=== PATIENT | male | born 1985 | race African-American/Black ===

== ENCOUNTER 2019-09-23 23:22 | Emergency (ER) | payer OTHER ==
[~2019-09-23] VITALS: Ht 172.7 cm; Wt 117.9 kg
[2019-09-23 23:30] VITALS: BP 136/93
[2019-09-23] MEDS: Albuterol/Ipratropium 3ml neb HHN SCH (23:45)
[2019-09-24] MEDS ORDERED: Albuterol 90mcg Inhaler 8gm INH STA (00:10)
--- NOTE | 2019-09-24 00:10 | Emergency Room Report ---
History of Present Illness General Chief Complaint: Asthma Source: Patient Present Illness HPI Patient is a 34-year-old male past medical history of obesity and asthma who presents to the ER complaining of asthma attack. Patient states that it has gotten worse over the past few days. Patient does have a nebulizer machine at home that he has been using but still complains of chest tightness and shortness of breath. He states that his asthma is worse likely due to the windy and yamil conditions and smoke. Patient denies any fever or chills. He denies any recent travel. He denies any family history of early cardiovascular disease. He denies any lower extremity pain or edema. He denies any family history of sudden . He denies any drug use. He denies any cough. 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 Patient History Reviewed Nursing Documentation: PMH: Agreed; PSxH: Agreed Review of Systems All Other Systems: negative except mentioned in HPI Physical Exam Vital Signs Date Time Temp Pulse Resp B/P (MAP) Pulse Ox O2 Delivery O2 Flow Rate FiO2 09/23/19 23:24 98.6 105 20 136/93 (107) 96 Room Air Sp02 EP Interpretation: reviewed, normal General Appearance: no apparent distress, alert, GCS 15, non-toxic Head: normocephalic, atraumatic Eyes: bilateral eye normal inspection, bilateral eye PERRL ENT: hearing grossly normal, normal pharynx, no angioedema, normal voice Neck: full range of motion, supple/symm/no masses Respiratory: chest non-tender, no respiratory distress, no retraction, no accessory muscle use, speaking full sentences, wheezing Cardiovascular #1: no edema, tachycardia Cardiovascular #2: 2+ carotid (R), 2+ carotid (L) Gastrointestinal: normal bowel sounds, non tender, soft, non-distended, no guarding, no rebound Rectal: deferred Genitourinary: normal inspection, no CVA tenderness Musculoskeletal: no calf tenderness, gait/station normal Neurologic: alert, motor strength/tone normal, oriented x3, sensory intact, responsive, speech normal Psychiatric: no suicidal/homicidal ideation Skin: no rash Lymphatic: no adenopathy Medical Decision Making Diagnostic Impression: Primary Impression: Asthma exacerbation Additional Impression: COVID-19 ER Course Patient had mild tachycardia on arrival he stated that he just had his nebulizer. Tachycardia resolved and then patient again had breathing treatment here in the emergency room patient was tachycardic again at 108. Patient notified about his COVID-19 positive results. Patient in no acute respiratory distress. His oxygen saturation is 96%. He is able to speak in complete sentences while ambulating. Patient's chest x-ray demonstrates no acute cardiopulmonary pathology. Patient is complaining of some chest discomfort he describes it as a tightness. I explained to the patient that he could be admitted for his symptoms. Patient is adamantly declining admission at this time. He states that he will monitor his symptoms and return for any new or worsening symptoms. Told to specifically monitor for shortness of breath, chest pain, inability to tolerate p.o. or symptoms of dehydration. I explained that most people with such infections can get better with appropriate home care and without the need to see a provider. People who are elderly, or have a weak immune system or other medical problems are at a higher risk of more serious illness or complications. I recommend that they carefully monitor their symptoms closely and seek medical care early if their symptoms get worse. I recommend rest, drinking plenty of fluids, taking [id number] cold and flu medications to reduce fever and pain. I noted that these medicines do not cure the illness and therefore do not stop them from spreading the germs. I recommend self quarantine for 14 days. Chest X-Ray Diagnostic Results Chest X-Ray Diagnostic Results : Chest X-Ray Ordered: Yes # of Views/Limited/Complete: 1 View Indication: Other - asthma EP Interpretation: Yes Interpretation: no consolidation, no effusion, no pneumothorax, no acute cardiopulmonary disease Impression: No acute disease Electronically Signed by: Lita Tolliver MD Last Vital Signs Date Time Temp Pulse Resp B/P (MAP) Pulse Ox O2 Delivery O2 Flow Rate FiO2 09/23/19 23:24 98.6 105 20 136/93 (107) 96 Room Air Disposition: HOME, SELF-CARE Condition: Stable Scripts Cetirizine Hcl* (ZYRTEC*) 10 Mg Tablet 10 MG ORAL DAILY, #30 TAB 0 Refills Prov: Lita Tolliver M.D. 09/24/19 Albuterol Sulfate* (ALBUTEROL SULFATE HHN*) 2.5 Mg/3 Ml Vial.neb 2.5 MG HHN Q4H PRN for Shortness of Breath, #25 VIAL Prov: Lita Tolliver M.D. 09/24/19 Prednisone* (PREDNISONE*) 20 Mg Tablet 60 MG ORAL DAILY, #5 TAB Prov: Lita Tolliver M.D. 09/24/19 Referrals: [facility],REFERRING (PCP) Additional Instructions: The patient was provided with discharge instructions, notified to follow-up with a primary care doctor and or specialist in the next 24-48 hours, and to return to the ED if they have worsening of their symptoms. Please note that this report is being documented using OpenTable technology. This can lead to erroneous entry secondary to incorrect interpretation by the dictating instrument. Lita Tolliver M.D. Sep 24, 2019 00:10
[2019-09-24] MEDS: Albuterol/Ipratropium 3ml neb HHN SCH ×4 (00:15→00:45)
[2019-09-24] MEDS ORDERED: ALBUTEROL2.5 MG/3 M HHN (00:35)
[2019-09-24] MEDS ORDERED: PREDNISONE20 MG ORAL (00:35)
[2019-09-24] MEDS ORDERED: ZYRTEC10 MG ORAL (00:35)
--- NOTE | 2019-09-24 01:29 | Diagnostic Imaging Report ---
EXAM: XR Chest, 1 View CLINICAL HISTORY: SOB TECHNIQUE: Frontal view of the chest. COMPARISON: No relevant prior studies available. FINDINGS: Limitations: Artifact related to body habitus limits detail. Lungs: No focal consolidation. Pleural space: No pleural effusion or pneumothorax. Heart: Cardiac silhouette likely upper normal in size allowing for frontal technique. Prominent epicardial fat pad likely present. Mediastinum: Unremarkable. Bones/joints: Unremarkable. IMPRESSION: No acute cardiopulmonary process.
[2019-09-24 01:40] VITALS: BP 136/93
[2019-10-14] MEDS ORDERED: PREDNISONE20 MG ORAL (22:35)
[2019-10-14] MEDS ORDERED: ATIVAN0.5 MG ORAL (22:35)
[2019-10-14] MEDS ORDERED: NASONEX17 GM NASAL (22:35)
== END 2019-09-24 01:40 | disposition home or self-care (01) ==
LOC: EMR 23:59
DX: U07.1 COVID-19 (principal); J45.901 Unspecified asthma with (acute) exacerbation
CPT/HCPCS: 71045; 94640; 99284; J7512

== ENCOUNTER → 2019-10-14 | Emergency (ER) | payer OTHER ==
[~2019-10-14] VITALS: Ht 172.7 cm; Wt 113.4 kg
[~2019-10-14] MED LIST: ALBUTEROL2.5 MG/3 M HHN; ATIVAN0.5 MG ORAL; NASONEX17 GM NASAL; PREDNISONE20 MG ORAL; Solu-MEDROL 125mg Inj IVP ONE; ZYRTEC10 MG ORAL
--- NOTE | 2019-10-14 19:30 | NUR ---
ED Nurse Note: PT AMBULATED TO ED FROM HOME C/O CHEST TIGHTNESS R/T ASTHMA, INHALER INEFFECTIVE. 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 ERMD AT BEDSIDE
--- NOTE | 2019-10-14 19:49 | Emergency Room Report ---
History of Present Illness General Chief Complaint: Dyspnea/Respdistress Source: Patient, Medical Record Present Illness HPI Patient presents with intermittent dyspnea and tachycardia. He had a positive COVID-19 test September 22. He is recently returned to work. 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 He notices his heart rate is up to the 130s. He does have a pulse oximetry and his oximetry is usually pretty good. He has a nebulizer and inhalers. He has had a lot of nasal congestion and using nasal sprays which makes his heart rate go up faster at this time. He denies chest pain per se. He denies any edema or calf pain. He states that during the shortness of breath he feels extremely anxious. He is concerned whether he has continued sequela of COVID-19 disease. He is requesting that a COVID-19 test be performed. He recently stopped taking oral prednisone. He had improvement with this. No fevers, chills, sore throat, chest pain, nausea, vomiting, diarrhea, dysuria , abdominal pain, joint pain, rashes, visual changes, dizziness, headache. He states that when younger he was told that he had an increased heart rate. 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 Nursing Documentation: PMH: Agreed; PSxH: Agreed Nursing Documentation-PMH Past Medical History: No History, Except For Hx Asthma: Yes Review of Systems All Other Systems: negative except mentioned in HPI Physical Exam Vital Signs Date Time Temp Pulse Resp B/P (MAP) Pulse Ox O2 Delivery O2 Flow Rate FiO2 10/14/19 19:13 132 24 152/97 (115) 96 Room Air Sp02 EP Interpretation: reviewed, normal - Pulse oximetry in the room is 99% General Appearance: well appearing, no apparent distress, GCS 15, non-toxic Head: normocephalic Eyes: bilateral eye normal inspection, bilateral eye PERRL, bilateral eye EOMI ENT: normal pharynx, moist mucus membranes Neck: full range of motion, supple Respiratory: chest non-tender, lungs clear, normal breath sounds Cardiovascular #1: no edema, tachycardia Cardiovascular #2: 2+ radial (R) Gastrointestinal: normal inspection, normal bowel sounds, non tender, no mass, non-distended Genitourinary: no CVA tenderness Musculoskeletal: back normal, normal range of motion, no calf tenderness, gait/ station normal Neurologic: alert, oriented x3, grossly normal, normal inspection Psychiatric: anxious Skin: no rash, warm/dry Medical Decision Making Diagnostic Impression: Primary Impression: Dyspnea Qualified Codes: R06.00 - Dyspnea, unspecified Additional Impressions: Hypokalemia History of 2019 novel coronavirus disease (COVID-19) History of asthma Anxiety Sinusitis Qualified Codes: J32.9 - Chronic sinusitis, unspecified ER Course Patient presents with intermittent dyspnea and rapid heart rate with a history of asthma and positive COVID-19 on the September 22. Differential includes myocarditis, acute myocardial infarction, pericarditis, asthma exacerbation, reaction to nasal sprays, pulmonary embolus amongst others. Evaluation with EKG , chest x-ray labs. Treatment with IV hydration and Solu-Medrol. The patient does not have wheezing at this time and breathing treatments are not indicated. Advised staff to don protective equipment in dealing with this patient as he could still be infected at this time. EKG was sinus tachycardia no injury. Chest x-ray clear without infiltrates. White count normal with normal lymphocytes. CMP remarkable for minimally low potassium. C-reactive protein minimally elevated. Ferritin minimally elevated. Troponin normal. Potassium administered. Patient improved with treatment. Long discussion with patient regarding findings. Tachycardia is resolved. There is no evidence of significant inflammatory COVID-19 disease at this time. Discussed that the patient may have anxiety and may be contributing to his dyspnea. No medical emergency at this time. Discussed with patient need to follow-up with his own private physician. In addition I recommended that the patient seek outpatient COVID-19 testing if he is still concerned. Patient stable for outpatient observation and treatment. Laboratory Tests Test 10/14/19 19:50 White Blood Count 9.1 K/UL (4.8-10.8) Red Blood Count 4.91 M/UL (4.70-6.10) Hemoglobin 14.3 G/DL (14.2-18.0) Hematocrit 42.4 % (42.0-52.0) Mean Corpuscular Volume 86 FL (80-99) Mean Corpuscular Hemoglobin 29.0 PG (27.0-31.0) Mean Corpuscular Hemoglobin Concent 33.6 G/DL (32.0-36.0) Red Cell Distribution Width 12.5 % (11.6-14.8) Platelet Count 337 K/UL (150-450) Mean Platelet Volume 7.4 FL (6.5-10.1) Neutrophils (%) (Auto) 64.2 % (45.0-75.0) Lymphocytes (%) (Auto) 26.4 % (20.0-45.0) Monocytes (%) (Auto) 6.8 % (1.0-10.0) Eosinophils (%) (Auto) 1.1 % (0.0-3.0) Basophils (%) (Auto) 1.5 % (0.0-2.0) Prothrombin Time 10.9 SEC (9.30-11.50) Prothrombin Time INR 1.0 (0.9-1.1) Activated Partial Thromboplast Time 28 SEC (23-33) Urine Color Pale yellow Urine Appearance Clear Urine pH 8 (4.5-8.0) Urine Specific [place] 1.010 (1.005-1.035) Urine Protein Negative (NEGATIVE) Urine Glucose (UA) Negative (NEGATIVE) Urine Ketones Negative (NEGATIVE) Urine Blood Negative (NEGATIVE) Urine Nitrite Negative (NEGATIVE) Urine Bilirubin Negative (NEGATIVE) Urine Urobilinogen Normal MG/DL (0.0-1.0) Urine Leukocyte Esterase Negative (NEGATIVE) Sodium Level 141 MMOL/L (136-145) Potassium Level 3.3 MMOL/L (3.5-5.1) L Chloride Level 102 MMOL/L (98-107) Carbon Dioxide Level 30 MMOL/L (21-32) Anion Gap 9 mmol/L (5-15) Blood Urea Nitrogen 9 mg/dL (7-18) Creatinine 1.0 MG/DL (0.55-1.30) Estimated Glomerular Filtration Rate > 60 mL/min (>60) Glucose Level 116 MG/DL (74-106) H Calcium Level 9.1 MG/DL (8.5-10.1) Magnesium Level 2.0 MG/DL (1.8-2.4) Ferritin 392 NG/ML (8-388) H Total Bilirubin 0.3 MG/DL (0.2-1.0) Aspartate Amino Transferase (AST) 24 U/L (15-37) Alanine Aminotransferase (ALT) 67 U/L (12-78) Alkaline Phosphatase 71 U/L (46-116) Lactate Dehydrogenase 191 U/L (81-234) Total Creatine Kinase 102 U/L (26-308) Troponin I 0.000 ng/mL (0.000-0.056) C-Reactive Protein, Quantitative 1.3 mg/dL (0.00-0.90) H Pro-B-Type Natriuretic Peptide 6 pg/mL (0-125) Total Protein 8.2 G/DL (6.4-8.2) Albumin 4.5 G/DL (3.4-5.0) Globulin 3.7 g/dL Albumin/Globulin Ratio 1.2 (1.0-2.7) Urine Opiates Screen Negative (NEGATIVE) Urine Barbiturates Screen Negative (NEGATIVE) Phencyclidine (PCP) Screen Negative (NEGATIVE) Urine Amphetamines Screen Negative (NEGATIVE) Urine Benzodiazepines Screen Negative (NEGATIVE) Urine Cocaine Screen Negative (NEGATIVE) Urine Marijuana (THC) Screen Negative (NEGATIVE) EKG Diagnostic Results Rate: tachycardiac Rhythm: NSR ST Segments: no acute changes Rhythm Strip Diag. Results EP Interpretation: yes Rhythm: no PVC's, other - ST Chest X-Ray Diagnostic Results Chest X-Ray Diagnostic Results : Chest X-Ray Ordered: Yes # of Views/Limited/Complete: 1 View Indication: Shortness of Breath EP Interpretation: Yes Interpretation: no consolidation, no effusion, no pneumothorax Impression: No acute disease Electronically Signed by: Electronically signed by Dat Navarrete MD Last Vital Signs Date Time Temp Pulse Resp B/P (MAP) Pulse Ox O2 Delivery O2 Flow Rate FiO2 10/14/19 19:13 132 24 152/97 (115) 96 Room Air Status: improved Disposition: HOME, SELF-CARE Condition: Improved Scripts Mometasone Furoate (NASONEX) 17 Gm [place].pump 2 SPRAYS NASAL DAILY, #20 GM 0 Refills Prov: Dat Navarrete MD 10/14/19 Lorazepam* (ATIVAN*) 0.5 Mg Tablet 0.5 MG ORAL THREE TIMES A DAY PRN for For Anxiety, #4 TAB Prov: Dat Navarrete MD 10/14/19 Prednisone* (PREDNISONE*) 20 Mg Tablet 40 MG ORAL DAILY, #10 TAB Prov: Dat Navarrete MD 10/14/19 Dat Navarrete MD Oct 14, 2019 19:49
[2019-10-14 20:00] VITALS: BP 152/97
[2019-10-14 20:25] LABS: BASOPHILS % (AUTO) 1.5 % (0.0-2.0); EOSINOPHILS % (AUTO) 1.1 % (0.0-3.0); HEMATOCRIT 42.4 % (42.0-52.0); HEMOGLOBIN 14.3 G/DL (14.2-18.0); LYMPHOCYTES % (AUTO) 26.4 % (20.0-45.0); MEAN CORPUSCULAR VOLUME 86 FL (80-99); MONOCYTES % (AUTO) 6.8 % (1.0-10.0); NEUTROPHILS % (AUTO) 64.2 % (45.0-75.0); PLATELET COUNT 337 K/UL (150-450); RED BLOOD COUNT 4.91 M/UL (4.70-6.10); RED CELL DISTRIBUTION WIDTH 12.5 % (11.6-14.8); WHITE BLOOD COUNT 9.1 K/UL (4.8-10.8)
[2019-10-14 20:34] LABS: ANION GAP 9 mmol/L (5-15); BLOOD UREA NITROGEN 9 mg/dL (7-18); CALCIUM 9.1 MG/DL (8.5-10.1); CARBON DIOXIDE 30 MMOL/L (21-32); CHLORIDE 102 MMOL/L (98-107); POTASSIUM 3.3 MMOL/L (3.5-5.1); SODIUM 141 MMOL/L (136-145)
[2019-10-14 20:50] LABS: ALANINE AMINOTRANSFERASE 67 U/L (12-78); ALBUMIN 4.5 G/DL (3.4-5.0); ALBUMIN/GLOBULIN RATIO 1.2 (1.0-2.7); ALKALINE PHOSPHATASE 71 U/L (46-116); ASPARTATE AMINO TRANSFERASE 24 U/L (15-37); BILIRUBIN,TOTAL 0.3 MG/DL (0.2-1.0); CREATINE KINASE 102 U/L (26-308); FERRITIN 392 NG/ML (8-388); LACTATE DEHYDROGENASE 191 U/L (81-234)
[2019-10-14 21:10] LABS: APPEARANCE,URINE CLEAR; BILIRUBIN, URINE NEGATIVE (NEGATIVE); COLOR,URINE PALE YELLOW; GLUCOSE, URINE (UA) NEGATIVE (NEGATIVE); KETONES,URINE NEGATIVE (NEGATIVE); LEUKOCYTE ESTERASE ,URINE NEGATIVE (NEGATIVE); NITRITE,URINE NEGATIVE (NEGATIVE); PH,URINE 8 (4.5-8.0); PROTEIN,URINE NEGATIVE (NEGATIVE); UROBILINOGEN,URINE NORMAL MG/DL (0.0-1.0)
[2019-10-14 22:00] VITALS: BP 138/82
[2019-10-14 22:40] VITALS: BP 138/82
--- NOTE | 2019-10-14 22:40 | NUR ---
ER DISCHARGE NOTE: Patient is cleared to be discharged per ERMD, pt is aox4, on room air, with stable vital signs. pt was given dc and prescription instructions, pt was able to verbalize understanding, pt id band and iv site removed without complications. pt is able to ambulate with steady gait. pt took all belongings.
--- NOTE | 2019-10-15 12:39 | Diagnostic Imaging Report ---
Indication: Dyspnea Technique: One view of the chest Comparison: 09/24/2019 Findings: Lungs and pleural spaces are clear. Heart size is upper limits normal. Impression: No acute process
== END | disposition home or self-care (01) ==
LOC: EMR 19:35
DX: R06.00 Dyspnea, unspecified (principal); E87.6 Hypokalemia; F41.9 Anxiety disorder, unspecified; J32.9 Chronic sinusitis, unspecified; J45.909 Unspecified asthma, uncomplicated; R00.0 Tachycardia, unspecified; Z86.19 Personal history of other infectious and parasitic diseases
CPT/HCPCS: 36415; 71045; 80053; 80307; 81003; 82550; 82728; 83615; 83735; 83880; 84484; 85025; 85610; 85730; 86140; 93005; 96361; 96374; 99284; J2930; J7030; J8499

== ENCOUNTER 2020-01-29 22:42 | Emergency (ER) | payer OTHER ==
[~2020-01-29] VITALS: Ht 172.7 cm; Wt 117.9 kg
[~2020-01-29 22:42] MED LIST changes: -Solu-MEDROL 125mg Inj IVP ONE
--- NOTE | 2020-01-29 23:00 | NUR ---
ED Nurse Note: Pt ambulated to Ed from home c/o generalized back pain that radiates to his neck, for several weeks, worse today, denies injury. PCP reffered to ER. Pt is A&OXRachel, VSS. PELAYO at bedside
--- NOTE | 2020-01-29 23:22 | NUR ---
ED Nurse Note: pt to xray
--- NOTE | 2020-01-29 23:22 | Emergency Room Report ---
History of Present Illness General Chief Complaint: Back Pain-No Injury Source: Patient Present Illness HPI This a 34-year-old male with history of asthma. He presents with complaint of neck and back pain. He said his back pain is localized to the mid thoracic area. Been ongoing for a couple weeks. He felt tightness in that area. He woke up 1 day and felt stiffness in that area. No heavy lifting. Worse with movement. Better with rest. Lasts week he has some headache and dizziness. Also with tenderness to the left neck area. His doctor placed him on Naprosyn and Augmentin. He finished Augmentin but he still noticed a white spot at the base of his mouth on the left side. Is neck also felt stiff. Pain is 7 out of 10. Nothing made it better. Nothing made it worse. No incontinence of bowel or urine. No trauma. 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 COVID-19 Screening: Negative COVID-19 COVID-19 Testing Source: [facility] Patient History Past Medical History: see triage record, old chart reviewed, asthma Past Surgical History: none Pertinent Family History: none Social History: Denies: smoking Immunizations: other Reviewed Nursing Documentation: PMH: Agreed; PSxH: Agreed Nursing Documentation-PMH Past Medical History: No History, Except For Hx Asthma: Yes Review of Systems Eye: Denies: eye pain, blurred vision ENT: Denies: ear pain, nose congestion, throat swelling Respiratory: Denies: cough, shortness of breath Cardiovascular: Denies: chest pain, palpitations Gastrointestinal: Denies: abdominal pain, diarrhea, nausea, vomiting Musculoskeletal: Reports: back pain; Denies: joint pain Skin: Denies: rash Neurological: Denies: headache, numbness Endocrine: Denies: increased thirst, increased urine Hematologic/Lymphatic: Denies: easy bruising All Other Systems: negative except mentioned in HPI Physical Exam Vital Signs Date Time Temp Pulse Resp B/P (MAP) Pulse Ox O2 Delivery O2 Flow Rate FiO2 01/29/20 22:43 97.7 115 16 145/90 (108) 96 Room Air Vitals with blood pressure Sp02 EP Interpretation: reviewed, normal General Appearance: well appearing, no apparent distress, alert, obese Head: normocephalic, atraumatic Eyes: bilateral eye PERRL, bilateral eye EOMI ENT: hearing grossly normal, normal pharynx Neck: full range of motion, supple, no meningismus Respiratory: chest non-tender, lungs clear, normal breath sounds Cardiovascular #1: regular rate, rhythm - Heart rate 90, no murmur Gastrointestinal: normal bowel sounds, non tender, no mass, no organomegaly, no bruit, non-distended Musculoskeletal: back normal, normal range of motion, gait/station normal Neurologic: grossly normal Psychiatric: mood/affect normal Medical Decision Making Diagnostic Impression: Primary Impression: Neck muscle strain Qualified Codes: S16.1XXA - Strain of muscle, fascia and tendon at neck level, initial encounter Additional Impression: Strain of thoracic back region ER Course Patient with neck and back pain. No red flags to indicate cauda equina syndrome, spinal rubs or abscess or neoplastic process. Will discharge home. Other X-Ray Diagnostic Results Other X-Ray Diagnostic Results #1: X-Ray ordered: Cervical x-rays # of Views/Limited Vs Complete: 3 View Indication: Pain EP Interpretation: Yes Interpretation: no dislocation, no soft tissue swelling, no fractures Impression: No acute disease Electronically Signed by: Apolinar Talavera MD Other X-Ray Diagnostic Results #2: X-Ray ordered: Thoracic spine x-rays # of Views/Limited Vs Complete: 2 View Indication: Pain EP Interpretation: Yes Interpretation: no dislocation, no soft tissue swelling, no fractures Impression: No acute disease Electronically Signed by: Monisha Can Last Vital Signs Date Time Temp Pulse Resp B/P (MAP) Pulse Ox O2 Delivery O2 Flow Rate FiO2 01/29/20 22:43 97.7 115 16 145/90 (108) 96 Room Air Status: unchanged Disposition: HOME, SELF-CARE Condition: Stable Referrals: NOT CHOSEN [facility]/,REFERRING (PCP) Patient Instructions: Back Pain, Adult Additional Instructions: Follow-up with your doctor in 7 days. Continue with pain, may need an MRI. Return if worse. Apolinar Talavera MD Jan 29, 2020 23:22
--- NOTE | 2020-01-29 23:30 | NUR ---
ED Nurse Note: ERMD aware of pt's stated pain scale, pt to take own medications at home.
[2020-01-29] MEDS ORDERED: MOBIC15 MG ORAL (23:43)
[2020-01-29 23:46] VITALS: BP 145/90
--- NOTE | 2020-01-29 23:46 | NUR ---
ER DISCHARGE NOTE: Patient is cleared to be discharged per ERMD, pt is aox4, on room air, with stable vital signs. pt was given dc and prescription instructions, pt was able to verbalize understanding, pt id band removed. pt is able to ambulate with steady gait. pt took all belongings.
--- NOTE | 2020-01-29 23:51 | Diagnostic Imaging Report ---
EXAM: XR Cervical Spine, 2 or 3 Views CLINICAL HISTORY: PAIN TECHNIQUE: Frontal and lateral views of the cervical spine. COMPARISON: No relevant prior studies available. FINDINGS: Vertebrae: Spine straightening could represent patient positioning or muscle spasm. No definite fracture. Normal alignment. Disc spaces: No acute findings. No significant narrowing. Soft tissues: Unremarkable. IMPRESSION: 1. Spine straightening could represent patient positioning or muscle spasm. 2. Otherwise no acute abnormality definitively identified to account for patient presentation. 3. If there is continued concern, recommend CT.
--- NOTE | 2020-01-29 23:52 | Diagnostic Imaging Report ---
EXAM: XR Thoracic Spine, 3 Views CLINICAL HISTORY: PAIN TECHNIQUE: Frontal, lateral and swimmer's views of the thoracic spine. COMPARISON: No relevant prior studies available. FINDINGS: Vertebrae: Unremarkable. No acute fracture. Normal alignment. Disc spaces: No acute findings. No significant narrowing. Soft tissues: Unremarkable. Other findings: If there is further concern, recommend CT. IMPRESSION: 1. No acute abnormality definitively identified to account for patient presentation. 2. Unremarkable study. 3. If there is further concern, recommend CT.
== END 2020-01-29 23:46 | disposition home or self-care (01) ==
LOC: EMR 23:04
DX: S16.1XXA Strain of muscle, fascia and tendon at neck level, initial encounter (principal); S29.012A Strain of muscle and tendon of back wall of thorax, initial encounter; X58.XXXA Exposure to other specified factors, initial encounter; Y92.9 Unspecified place or not applicable; E66.9 Obesity, unspecified; Z68.39 Body mass index [BMI] 39.0-39.9, adult
CPT/HCPCS: 72040; 72070; 99284

== ENCOUNTER 2020-02-02 12:39 | Emergency (ER) | payer OTHER ==
[~2020-02-02] VITALS: Ht 172.7 cm; Wt 119.3 kg
[~2020-02-02 12:39] MED LIST changes: +MOBIC15 MG ORAL
[2020-02-02 12:49] VITALS: BP 135/83
--- NOTE | 2020-02-02 12:59 | Emergency Room Report ---
History of Present Illness General Chief Complaint: Abdominal Pain Source: Patient Present Illness HPI Disclaimer: Please note that this report is being documented using [employer] technology. This can lead to erroneous entry secondary to incorrect interpretation by the dictating instrument. HPI: 34-year-old male presents for evaluation of bloating. Patient reports feeling like his stomach is distended and early satiety for the past 2 days. Reports increased belching but decreased flatulence. He took laxatives yesterday as a home cleanout regimen. No significant improvement. He reports intermittent abdominal pain, currently none. Abdominal pain is described as diffuse though sometimes localized more on the right side. Denies history of prior abdominal surgery. Denies dysuria or hematuria. Aside from loose stools after taking laxatives yesterday denies diarrhea. No emesis. Denies fever, chills, chest pain, shortness of breath, cough, URI symptoms. 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 EOMI. Cardiovascular: RRR. S1 and S2 normal. No murmur appreciated Resp: Normal work of breathing. No cough, wheezing or crackles appreciated Abdomen: Obese abdomen. Nondistended, soft. No tenderness, negative Aparicio's, negative rebound tenderness, no guarding. Skin: Intact. No abrasions, laceration or rash over the exposed skin MSK: Normal tone and bulk. Moving all extremities. No obvious deformity. Neuro: Awake and alert. Mentating appropriately. Medical Decision Making Diagnostic Impression: Primary Impression: Abdominal pain ER Course 34-year-old male presenting for evaluation of abdominal distention. Differential includes is not limited to gastritis, gastroenteritis, pancreatitis, cholecystitis, hepatitis, bowel obstruction, ileus, nephrolithiasis, appendicitis, UTI, pyelonephritis among others. He is well- appearing and arrives with stable vital signs. His symptoms appear to have resolved now. Obtained labs which have returned within normal limits. Ultrasound of the right upper quadrant found no identifiable biliary disease. X-ray of the abdomen does not show obstruction. He is well-appearing tolerating p.o. at bedside. Will discharge with symptomatic medications and follow-up with his PMD. Discussed reasons to return to the ED. He understands and agrees with this treatment plan. Laboratory Tests Test 02/02/20 13:05 02/02/20 14:00 White Blood Count 7.5 K/UL (4.8-10.8) Red Blood Count 5.16 M/UL (4.70-6.10) Hemoglobin 15.1 G/DL (14.2-18.0) Hematocrit 45.0 % (42.0-52.0) Mean Corpuscular Volume 87 FL (80-99) Mean Corpuscular Hemoglobin 29.3 PG (27.0-31.0) Mean Corpuscular Hemoglobin Concent 33.6 G/DL (32.0-36.0) Red Cell Distribution Width 11.7 % (11.6-14.8) Platelet Count 296 K/UL (150-450) Mean Platelet Volume 8.5 FL (6.5-10.1) Neutrophils (%) (Auto) 66.0 % (45.0-75.0) Lymphocytes (%) (Auto) 24.7 % (20.0-45.0) Monocytes (%) (Auto) 6.8 % (1.0-10.0) Eosinophils (%) (Auto) 0.8 % (0.0-3.0) Basophils (%) (Auto) 1.8 % (0.0-2.0) Sodium Level 138 MMOL/L (136-145) Potassium Level 3.8 MMOL/L (3.5-5.1) Chloride Level 102 MMOL/L (98-107) Carbon Dioxide Level 28 MMOL/L (21-32) Anion Gap 8 mmol/L (5-15) Blood Urea Nitrogen 12 mg/dL (7-18) Creatinine 1.1 MG/DL (0.55-1.30) Estimated Glomerular Filtration Rate > 60 mL/min (>60) Glucose Level 102 MG/DL (74-106) Calcium Level 9.3 MG/DL (8.5-10.1) Total Bilirubin 0.5 MG/DL (0.2-1.0) Aspartate Amino Transferase (AST) 31 U/L (15-37) Alanine Aminotransferase (ALT) 72 U/L (12-78) Alkaline Phosphatase 67 U/L (46-116) Total Protein 7.6 G/DL (6.4-8.2) Albumin 4.5 G/DL (3.4-5.0) Globulin 3.1 g/dL Albumin/Globulin Ratio 1.5 (1.0-2.7) Lipase 48 U/L (73-393) L Urine Color Yellow Urine Appearance Clear Urine pH 5 (4.5-8.0) Urine Specific [place] 1.025 (1.005-1.035) Urine Protein Negative (NEGATIVE) Urine Glucose (UA) Negative (NEGATIVE) Urine Ketones 1+ (NEGATIVE) H Urine Blood Negative (NEGATIVE) Urine Nitrite Negative (NEGATIVE) Urine Bilirubin Negative (NEGATIVE) Urine Urobilinogen Normal MG/DL (0.0-1.0) Urine Leukocyte Esterase Negative (NEGATIVE) Last Vital Signs Date Time Temp Pulse Resp B/P (MAP) Pulse Ox O2 Delivery O2 Flow Rate FiO2 02/02/20 12:45 98.2 99 20 135/83 (100) 98 Room Air Disposition: HOME, SELF-CARE Condition: Stable Scripts Famotidine* (Pepcid 20mg tablet*) 20 Mg Tablet 20 MG ORAL DAILY for Gerd, #30 TAB 0 Refills Prov: Jorge Aquino MD 02/02/20 Ondansetron Odt* (ZOFRAN ODT*) 4 Mg Tab.rapdis 4 MG BC EVERY 6 HOURS PRN for Nausea & Vomiting, #20 TAB 0 Refills Prov: Jorge Aquino MD 02/02/20 Simethicone* (SIMETHICONE*) 80 Mg Tab.chew 80 MG ORAL Q8H PRN for GAS PAIN, #20 TAB 0 Refills Prov: Jorge Aquino MD 02/02/20 Jorge Aquino MD Feb 02, 2020 12:59
[2020-02-02 13:20] LABS: BASOPHILS % (AUTO) 1.8 % (0.0-2.0); EOSINOPHILS % (AUTO) 0.8 % (0.0-3.0); HEMOGLOBIN 15.1 G/DL (14.2-18.0); LYMPHOCYTES % (AUTO) 24.7 % (20.0-45.0); MEAN CORPUSCULAR VOLUME 87 FL (80-99); MONOCYTES % (AUTO) 6.8 % (1.0-10.0); PLATELET COUNT 296 K/UL (150-450); RED BLOOD COUNT 5.16 M/UL (4.70-6.10); RED CELL DISTRIBUTION WIDTH 11.7 % (11.6-14.8); WHITE BLOOD COUNT 7.5 K/UL (4.8-10.8)
[2020-02-02 13:25] LABS: ANION GAP 8 mmol/L (5-15); BLOOD UREA NITROGEN 12 mg/dL (7-18); CALCIUM 9.3 MG/DL (8.5-10.1); CARBON DIOXIDE 28 MMOL/L (21-32); CHLORIDE 102 MMOL/L (98-107); CREATININE 1.1 MG/DL (0.55-1.30); POTASSIUM 3.8 MMOL/L (3.5-5.1); SODIUM 138 MMOL/L (136-145)
[2020-02-02 13:30] LABS: ALANINE AMINOTRANSFERASE 72 U/L (12-78); ALBUMIN 4.5 G/DL (3.4-5.0); ALBUMIN/GLOBULIN RATIO 1.5 (1.0-2.7); ALKALINE PHOSPHATASE 67 U/L (46-116); ASPARTATE AMINO TRANSFERASE 31 U/L (15-37); BILIRUBIN,TOTAL 0.5 MG/DL (0.2-1.0)
[2020-02-02] MEDS ORDERED: FAMOTIDINE20 MG ORAL (14:09)
[2020-02-02] MEDS ORDERED: ONDANSETRON ODT4 MG BC (14:09)
[2020-02-02] MEDS ORDERED: SIMETHICONE80 MG ORAL (14:09)
--- NOTE | 2020-02-02 14:20 | Diagnostic Imaging Report ---
Indication: Reason For Exam: ABD DIST Technique: AP view of the abdomen. Comparison: None. Findings: Bowel gas pattern is nonobstructive. Visceral shadows are unremarkable. Lung bases are clear. IMPRESSION: No radiographic evidence of obstruction.
[2020-02-02 14:23] LABS: BILIRUBIN, URINE NEGATIVE (NEGATIVE); GLUCOSE, URINE (UA) NEGATIVE (NEGATIVE); KETONES,URINE 1+ (NEGATIVE); LEUKOCYTE ESTERASE ,URINE NEGATIVE (NEGATIVE); NITRITE,URINE NEGATIVE (NEGATIVE); PH,URINE 5 (4.5-8.0); PROTEIN,URINE NEGATIVE (NEGATIVE); UROBILINOGEN,URINE NORMAL MG/DL (0.0-1.0)
[2020-02-02 14:25] LABS: APPEARANCE,URINE CLEAR; COLOR,URINE YELLOW
[2020-02-02 14:48] VITALS: BP 128/74
--- NOTE | 2020-02-02 16:04 | Diagnostic Imaging Report ---
ABDOMINAL ULTRASOUND - COMPLETE INDICATION: Abdominal pain. TECHNIQUE: Multiplanar ultrasound examination of the abdomen with greyscale and doppler imaging. COMPARISON: None FINDINGS: Liver: The liver is normal in size and demonstrates diffusely increased echogenicity. No focal abnormalities are noted. Gallbladder: The gallbladder is normal. No stones are visualized. The wall is not thickened. Common bile duct: Normal in size. Pancreas: Incompletely imaged. Kidneys: The kidneys are normal in size and echogenicity. There is no hydronephrosis. Spleen: The spleen is normal in size and echogenicity. Aorta: Incompletely imaged. IMPRESSION: 1. No acute sonographic findings. 2. Hepatic steatosis.
== END 2020-02-02 14:48 | disposition home or self-care (01) ==
LOC: EMR 13:15
DX: R10.9 Unspecified abdominal pain (principal); R14.0 Abdominal distension (gaseous); R14.2 Eructation; K76.0 Fatty (change of) liver, not elsewhere classified
CPT/HCPCS: 36415; 74018; 76700; 80053; 81003; 83690; 85025; 99284

== ENCOUNTER 2020-02-13 07:52 | Emergency (ER) | payer SELFPAY ==
[~2020-02-13] VITALS: Ht 172.7 cm; Wt 119.3 kg
[~2020-02-13 07:52] MED LIST changes: +FAMOTIDINE20 MG ORAL; +ONDANSETRON ODT4 MG BC; +SIMETHICONE80 MG ORAL
[2020-02-13 08:09] VITALS: BP 134/86
[2020-02-13] MEDS ORDERED: Ketorolac 30mg Inj IV ONE (08:15)
--- NOTE | 2020-02-13 08:22 | Emergency Room Report ---
History of Present Illness General Chief Complaint: Pain Source: Patient Present Illness HPI The patient presents with 1 month of right flank and lower back pain. It was intermittent initially. He was seen here 2 weeks ago and had an ultrasound done. He was discharged without any pain medications. His own doctor prescribed omeprazole and meloxicam. The pain is now constant. For the last 2 nights the pain has been keeping him awake. It seems worse when he is laying flat. It is not radiating. He occasionally feels nausea without any vomiting. The pain is 9/10 at this time aching. He also feels muscle tightness. 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 Sometimes the pain is worsened when he is lifting heavy objects. The pain does not radiate to his groin. He denies dysuria or hematuria. He denies fevers or chills. Medical decision making from February 01 evaluation: 34-year-old male presenting for evaluation of abdominal distention. Differential includes is not limited to gastritis, gastroenteritis, pancreatitis, cholecystitis, hepatitis, bowel obstruction, ileus, nephrolithiasis, appendicitis, UTI, pyelonephritis among others. He is well-appearing and arrives with stable vital signs. His symptoms appear to have resolved now. Obtained labs which have returned within normal limits. Ultrasound of the right upper quadrant found no identifiable biliary disease. X-ray of the abdomen does not show obstruction. He is well-appearing tolerating p.o. at bedside. Will discharge with symptomatic medications and follow-up with his PMD. Discussed reasons to return to the ED. He understands and agrees with this treatment plan. The patient also is complaining about some dizziness. Denies lightheadedness. Feels that he is about to pass out. Not associated with nausea. He does not feel vertiginous. He has not had anything to drink this morning and feels somewhat dehydrated. His doctor felt that he had sinus problems. He was given a nasal inhaler which has not helped. The patient denies palpitations. No family history of renal stones. The patient has a history of asthma. He does have an inhaler. He has heard himself wheezing. He has no productive cough at this time. No sore throat, chest pain, diarrhea, shortness of breath, rashes, depression, anxiety, visual changes, headache. 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 Reviewed Nursing Documentation: PMH: Agreed; PSxH: Agreed Nursing Documentation-PMH Past Medical History: No History, Except For Hx Asthma: Yes Review of Systems All Other Systems: negative except mentioned in HPI Physical Exam Vital Signs Date Time Temp Pulse Resp B/P (MAP) Pulse Ox O2 Delivery O2 Flow Rate FiO2 02/13/20 07:56 98.1 103 20 134/86 (102) 96 Room Air Sp02 EP Interpretation: reviewed, normal General Appearance: well appearing, no apparent distress, GCS 15, non-toxic Head: normocephalic Eyes: bilateral eye normal inspection, bilateral eye PERRL, bilateral eye EOMI ENT: moist mucus membranes Neck: supple Respiratory: lungs clear, normal breath sounds Cardiovascular #1: regular rate, rhythm Cardiovascular #2: 2+ radial (R) Gastrointestinal: normal inspection, normal bowel sounds, non tender, no mass, non-distended Genitourinary: CVA tenderness (R) - Seems more muscular and lower Musculoskeletal: normal range of motion, gait/station normal, tender - Lower back area and also radiating to the right paraspinous muscles no point tender ness. Neurologic: alert, motor strength/tone normal, DTRs symmetric, oriented x3, sensory intact, cerebellar normal, speech normal, normal gait Psychiatric: mood/affect normal Skin: no rash, warm/dry Medical Decision Making Diagnostic Impression: Primary Impression: Flank pain Additional Impressions: Muscle spasm Dizziness Bronchospasm ER Course Patient presents with right flank pain that it was intermittent for 1 month and also now is constant. He also complains about dizziness which is nonvertiginous. Differential includes muscle strain, renal stone, pyelonephritis, UTI, lumbar pain regarding the flank pain amongst others. Regarding dizziness considerations for dehydration, orthostatic hypotension, cardiomyopathy and arrhythmia amongst others. Patient evaluated with orthostatic vital signs, EKG, chest x-ray and labs. Ultrasound is reviewed. Patient is placed on a cardiac cath rn. As the patient feels somewhat dehydrated the patient will receive IV hydration. In addition the patient will be treated with Toradol for pain. The patient has minimal wheezing and has a history of asthma and does not feel this is contributing to the presenting problem. Not orthostatic. EKG normal sinus rhythm. Nonspecific ST-T wave changes. Chest x-ray normal heart size no infiltrates. Labs essentially unremarkable. AST and ALT minimally elevated. Prior ultrasound results: 1. No acute sonographic findings. 2. Hepatic steatosis. Patient improved after treatment with Toradol. He states the dizziness is persisting. Discussed the need for outpatient reevaluation. Outlined treatment plan for treatment of muscle tightness and spasm in the lower lumbar and flank area. Discussed consideration for performance of cardiac echocardiogram as an outpatient. No emergent risk or emergent condition at this time. Patient stable for outpatient observation and treatment. Laboratory Tests Test 02/13/20 08:25 White Blood Count 4.2 K/UL (4.8-10.8) L Red Blood Count 5.37 M/UL (4.70-6.10) Hemoglobin 15.7 G/DL (14.2-18.0) Hematocrit 47.0 % (42.0-52.0) Mean Corpuscular Volume 87 FL (80-99) Mean Corpuscular Hemoglobin 29.3 PG (27.0-31.0) Mean Corpuscular Hemoglobin Concent 33.5 G/DL (32.0-36.0) Red Cell Distribution Width 11.6 % (11.6-14.8) Platelet Count 276 K/UL (150-450) Mean Platelet Volume 7.8 FL (6.5-10.1) Neutrophils (%) (Auto) 47.1 % (45.0-75.0) Lymphocytes (%) (Auto) 37.7 % (20.0-45.0) Monocytes (%) (Auto) 9.7 % (1.0-10.0) Eosinophils (%) (Auto) 3.0 % (0.0-3.0) Basophils (%) (Auto) 2.5 % (0.0-2.0) H Prothrombin Time 11.3 SEC (9.30-11.50) Prothrombin Time INR 1.0 (0.9-1.1) Activated Partial Thromboplast Time 29 SEC (23-33) Urine Color Yellow Urine Appearance Clear Urine pH 7 (4.5-8.0) Urine Specific [place] 1.010 (1.005-1.035) Urine Protein 1+ (NEGATIVE) H Urine Glucose (UA) Negative (NEGATIVE) Urine Ketones Negative (NEGATIVE) Urine Blood Negative (NEGATIVE) Urine Nitrite Negative (NEGATIVE) Urine Bilirubin Negative (NEGATIVE) Urine Urobilinogen Normal MG/DL (0.0-1.0) Urine Leukocyte Esterase Negative (NEGATIVE) Urine RBC 0 /HPF (0 - 0) Urine WBC 0 /HPF (0 - 0) Urine Squamous Epithelial Cells None /LPF (NONE/OCC) Urine Bacteria None /HPF (NONE) Urine Mucus Occasional /LPF Sodium Level 139 MMOL/L (136-145) Potassium Level 3.6 MMOL/L (3.5-5.1) Chloride Level 102 MMOL/L (98-107) Carbon Dioxide Level 31 MMOL/L (21-32) Anion Gap 6 mmol/L (5-15) Blood Urea Nitrogen 13 mg/dL (7-18) Creatinine 1.1 MG/DL (0.55-1.30) Estimated Glomerular Filtration Rate > 60 mL/min (>60) Glucose Level 113 MG/DL (74-106) H Calcium Level 9.4 MG/DL (8.5-10.1) Total Bilirubin 0.4 MG/DL (0.2-1.0) Aspartate Amino Transferase (AST) 38 U/L (15-37) H Alanine Aminotransferase (ALT) 95 U/L (12-78) H Alkaline Phosphatase 72 U/L (46-116) Total Creatine Kinase 176 U/L (26-308) Troponin I 0.000 ng/mL (0.000-0.056) Total Protein 7.6 G/DL (6.4-8.2) Albumin 4.5 G/DL (3.4-5.0) Globulin 3.1 g/dL Albumin/Globulin Ratio 1.5 (1.0-2.7) Lipase 49 U/L (73-393) L EKG Diagnostic Results Rate: normal Rhythm: NSR ST Segments: no acute changes Rhythm Strip Diag. Results EP Interpretation: yes Rhythm: NSR, no PVC's, no ectopy CT/MRI/US Diagnostic Results CT/MRI/US Diagnostic Results : Imaging Test Ordered: US 02/01 Impression FINDINGS: Liver: The liver is normal in size and demonstrates diffusely increased echogenicity. No focal abnormalities are noted. Gallbladder: The gallbladder is normal. No stones are visualized. The wall is not thickened. Common bile duct: Normal in size. Pancreas: Incompletely imaged. Kidneys: The kidneys are normal in size and echogenicity. There is no hydronephrosis. Spleen: The spleen is normal in size and echogenicity. Aorta: Incompletely imaged. IMPRESSION: 1. No acute sonographic findings. 2. Hepatic steatosis. Last Vital Signs Date Time Temp Pulse Resp B/P (MAP) Pulse Ox O2 Delivery O2 Flow Rate FiO2 02/13/20 11:00 98.1 80 20 134/86 96 Room Air Status: improved Disposition: HOME, SELF-CARE Condition: Improved Scripts Hydrocodone Bit/Acetaminophen 5-325* (NORCO 5-325 TABLET*) 1 Each Tablet 1 TAB ORAL Q6H PRN for FOR PAIN, #10 TAB 0 Refills Prov: Dat Navarrete MD 02/13/20 Methocarbamol* (ROBAXIN-500*) 500 Mg Tablet 500 MG ORAL TID PRN for For Pain, #15 TAB 0 Refills Prov: Dat Navarrete MD 02/13/20 Ibuprofen* (MOTRIN*) 600 Mg Tablet 600 MG ORAL Q6H PRN for FOR PAIN, #20 TAB 0 Refills Prov: Dat Navarrete MD 02/13/20 Referrals: NOT CHOSEN IPA/,REFERRING (PCP) Dat Navarrete MD Feb 13, 2020 08:22
[2020-02-13 08:48] LABS: APPEARANCE,URINE CLEAR; BILIRUBIN, URINE NEGATIVE (NEGATIVE); COLOR,URINE YELLOW; GLUCOSE, URINE (UA) NEGATIVE (NEGATIVE); KETONES,URINE NEGATIVE (NEGATIVE); LEUKOCYTE ESTERASE ,URINE NEGATIVE (NEGATIVE); PH,URINE 7 (4.5-8.0); PROTEIN,URINE 1+ (NEGATIVE); UROBILINOGEN,URINE NORMAL MG/DL (0.0-1.0)
[2020-02-13 08:53] LABS: BASOPHILS % (AUTO) 2.5 % (0.0-2.0); HEMOGLOBIN 15.7 G/DL (14.2-18.0); LYMPHOCYTES % (AUTO) 37.7 % (20.0-45.0); MEAN CORPUSCULAR VOLUME 87 FL (80-99); MONOCYTES % (AUTO) 9.7 % (1.0-10.0); NEUTROPHILS % (AUTO) 47.1 % (45.0-75.0); PLATELET COUNT 276 K/UL (150-450); RED BLOOD COUNT 5.37 M/UL (4.70-6.10); RED CELL DISTRIBUTION WIDTH 11.6 % (11.6-14.8); WHITE BLOOD COUNT 4.2 K/UL (4.8-10.8)
[2020-02-13 09:00] LABS: NITRITE,URINE NEGATIVE (NEGATIVE)
[2020-02-13 09:02] LABS: ANION GAP 6 mmol/L (5-15); BLOOD UREA NITROGEN 13 mg/dL (7-18); CALCIUM 9.4 MG/DL (8.5-10.1); CARBON DIOXIDE 31 MMOL/L (21-32); CHLORIDE 102 MMOL/L (98-107); CREATININE 1.1 MG/DL (0.55-1.30); POTASSIUM 3.6 MMOL/L (3.5-5.1); SODIUM 139 MMOL/L (136-145)
[2020-02-13 09:08] LABS: ALANINE AMINOTRANSFERASE 95 U/L (12-78); ALBUMIN 4.5 G/DL (3.4-5.0); ALBUMIN/GLOBULIN RATIO 1.5 (1.0-2.7); ALKALINE PHOSPHATASE 72 U/L (46-116); ASPARTATE AMINO TRANSFERASE 38 U/L (15-37); BILIRUBIN,TOTAL 0.4 MG/DL (0.2-1.0); CREATINE KINASE 176 U/L (26-308)
[2020-02-13] MEDS ORDERED: ROBAXIN-500MG ORAL (10:51)
[2020-02-13] MEDS ORDERED: IBUPROFEN600 M1 ORAL (10:51)
[2020-02-13] MEDS ORDERED: NORCO 5-325 TA1 EAC1 ORAL (10:51)
[2020-02-13 11:00] VITALS: BP 134/86
== END 2020-02-13 11:00 | disposition home or self-care (01) ==
LOC: EMR 08:14
DX: R10.9 Unspecified abdominal pain (principal); M62.838 Other muscle spasm; R42 Dizziness and giddiness; J98.01 Acute bronchospasm; M54.5 Low back pain; K76.0 Fatty (change of) liver, not elsewhere classified
CPT/HCPCS: 36415; 80053; 81003; 82550; 83690; 84484; 85025; 85610; 85730; 93005; 96361; 96374; 99284; J1885; J7030

== ENCOUNTER 2020-02-18 05:55 | Emergency (ER) | payer SELFPAY ==
[~2020-02-18] VITALS: Ht 172.7 cm; Wt 117.9 kg
[~2020-02-18 05:55] MED LIST changes: +IBUPROFEN600 M1 ORAL; +NORCO 5-325 TA1 EAC1 ORAL; +ROBAXIN-500MG ORAL
--- NOTE | 2020-02-18 06:11 | NUR ---
ED Nurse Note: Patient walked in from home d/t right sided abdominal pain that radiates to right side of back. Patient aao x 4 and ambulatory with steady gait. pain described as aching and burning 8/10. Patient reports he was referred by his MD to get a CT of abdomen. Patient stable during assessment, no acute distress noted.
[2020-02-18 06:13] VITALS: BP 137/85
--- NOTE | 2020-02-18 06:36 | Emergency Room Report ---
History of Present Illness General Chief Complaint: Abdominal Pain Source: Patient Present Illness HPI Patient is a 34-year-old male presents for recurrent right-sided abdominal pain. Patient had recently been seen in the emergency department had recent ultrasound which showed fatty liver. Reports having light-colored stools. Had reportedly been having some anemia. Prior history of asthma. Does not take any steroids. Had been having localized pain to the right upper abdomen. Also had pain to the right side of his back. Pain is worse with movement. Denies any fever. Had prior antibiotic use but denies any diarrhea. Is currently taking stool softeners.Patient denies any vomiting. Denies any shortness of breath currently. 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 Patient History Past Medical History: see triage record Reviewed Nursing Documentation: PMH: Agreed; PSxH: Agreed Nursing Documentation-PMH Hx Asthma: Yes Review of Systems All Other Systems: negative except mentioned in HPI Physical Exam Vital Signs Date Time Temp Pulse Resp B/P (MAP) Pulse Ox O2 Delivery O2 Flow Rate FiO2 02/18/20 06:02 98.8 98 16 140/82 (101) 98 Room Air Sp02 EP Interpretation: reviewed, normal General Appearance: normal inspection, well appearing, no apparent distress, alert, GCS 15, non-toxic Head: atraumatic ENT: normal ENT inspection, hearing grossly normal, normal voice Neck: normal inspection, full range of motion, supple, no bony tend Respiratory: normal inspection, lungs clear, normal breath sounds, no respirat ory distress, no retraction, no wheezing Cardiovascular #1: regular rate, rhythm, no edema Gastrointestinal: normal inspection, normal bowel sounds, non tender, soft, no guarding, no hernia Genitourinary: no CVA tenderness Musculoskeletal: normal inspection, back normal, normal range of motion Neurologic: alert, motor strength/tone normal, 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 Differential diagnoses included ischemic bowel, appendicitis, perforated viscus, abdominal aortic aneurysm, inferior myocardial infarction, viral gastroenteritis among others.Because patient's complexity imaging studies, and laboratory testing ordered. Laboratory testing showed : CT imaging was ordered.CT of abdomen pelvis read by radiologist no evidence of acute pathology. Fatty liver was noted again. Patient is advised of findings and advised dietary modification. He is advised to follow-up with his doctor for possible GI referral and further evaluation of fatty liver. Patient appears to be stable for close outpatient follow up. Patient does not appear to have any evidence of acute abdomen. Pain is been ongoing for several weeks. Had already been started on acid blockers. Labs Test 02/18/20 06:20 02/18/20 06:35 White Blood Count 5.2 K/UL (4.8-10.8) Red Blood Count 5.45 M/UL (4.70-6.10) Hemoglobin 16.3 G/DL (14.2-18.0) Hematocrit 48.5 % (42.0-52.0) Mean Corpuscular Volume 89 FL (80-99) Mean Corpuscular Hemoglobin 29.9 PG (27.0-31.0) Mean Corpuscular Hemoglobin Concent 33.6 G/DL (32.0-36.0) Red Cell Distribution Width 11.9 % (11.6-14.8) Platelet Count 282 K/UL (150-450) Mean Platelet Volume 8.8 FL (6.5-10.1) Neutrophils (%) (Auto) 60.8 % (45.0-75.0) Lymphocytes (%) (Auto) 27.0 % (20.0-45.0) Monocytes (%) (Auto) 8.9 % (1.0-10.0) Eosinophils (%) (Auto) 1.1 % (0.0-3.0) Basophils (%) (Auto) 2.2 % (0.0-2.0) Prothrombin Time 11.0 SEC (9.30-11.50) Prothromb Time International Ratio 1.0 (0.9-1.1) Activated Partial Thromboplast Time 28 SEC (23-33) Sodium Level 139 MMOL/L (136-145) Potassium Level 3.8 MMOL/L (3.5-5.1) Chloride Level 99 MMOL/L (98-107) Carbon Dioxide Level 30 MMOL/L (21-32) Anion Gap 10 mmol/L (5-15) Blood Urea Nitrogen 12 mg/dL (7-18) Creatinine 1.1 MG/DL (0.55-1.30) Estimat Glomerular Filtration Rate > 60 mL/min (>60) Glucose Level 97 MG/DL (74-106) Calcium Level 9.4 MG/DL (8.5-10.1) Total Bilirubin 0.6 MG/DL (0.2-1.0) Aspartate Amino Transf (AST/SGOT) 33 U/L (15-37) Alanine Aminotransferase (ALT/SGPT) 94 U/L (12-78) Alkaline Phosphatase 74 U/L (46-116) Total Protein 8.1 G/DL (6.4-8.2) Albumin 4.6 G/DL (3.4-5.0) Globulin 3.5 g/dL Albumin/Globulin Ratio 1.3 (1.0-2.7) Lipase 52 U/L (73-393) Urine Color Pale yellow Urine Appearance Clear Urine pH 7 (4.5-8.0) Urine Specific [place] 1.005 (1.005-1.035) Urine Protein Negative (NEGATIVE) Urine Glucose (UA) Negative (NEGATIVE) Urine Ketones Negative (NEGATIVE) Urine Blood Negative (NEGATIVE) Urine Nitrite Negative (NEGATIVE) Urine Bilirubin Negative (NEGATIVE) Urine Urobilinogen Normal MG/DL (0.0-1.0) Urine Leukocyte Esterase Negative (NEGATIVE) Last Vital Signs Date Time Temp Pulse Resp B/P (MAP) Pulse Ox O2 Delivery O2 Flow Rate FiO2 02/18/20 06:13 95 16 Room Air 02/18/20 06:13 98.8 137/85 98 Status: improved Disposition: HOME, SELF-CARE Condition: Stable Scripts Omeprazole (Omeprazole) 20 Mg Tab.rap. 20 MG PO DAILY for Gerd, #30 TAB Prov: Issa Neumann MD 02/18/20 Referrals: NON PHYSICIAN (PCP) Issa Neumann MD Feb 18, 2020 06:36
[2020-02-18] MEDS ORDERED: Omnipaque-300 100ml vial INJ PRN (06:45)
--- NOTE | 2020-02-18 06:45 | NUR ---
ED Nurse Note: 20g IV on Left AC established, blood drawn and urine sent to lab.
--- NOTE | 2020-02-18 07:05 | NUR ---
ED Nurse Note: Received handoff report, patient resting in bed, no s/s of acute distress. Patient AxO x 4, calm, cooperative. Patient states he has right abdominal pain that radiates to low back that started 1-2 months ago. Consent for CT with contrast signed. IV patent.
--- NOTE | 2020-02-18 07:05 | NUR ---
HAND-OFF: Report given to LES Dominguez.
[2020-02-18 07:10] LABS: APPEARANCE,URINE CLEAR; BILIRUBIN, URINE NEGATIVE (NEGATIVE); COLOR,URINE PALE YELLOW; GLUCOSE, URINE (UA) NEGATIVE (NEGATIVE); KETONES,URINE NEGATIVE (NEGATIVE); LEUKOCYTE ESTERASE ,URINE NEGATIVE (NEGATIVE); NITRITE,URINE NEGATIVE (NEGATIVE); PH,URINE 7 (4.5-8.0); PROTEIN,URINE NEGATIVE (NEGATIVE); UROBILINOGEN,URINE NORMAL MG/DL (0.0-1.0)
[2020-02-18 07:16] LABS: BASOPHILS % (AUTO) 2.2 % (0.0-2.0); EOSINOPHILS % (AUTO) 1.1 % (0.0-3.0); HEMATOCRIT 48.5 % (42.0-52.0); HEMOGLOBIN 16.3 G/DL (14.2-18.0); MEAN CORPUSCULAR VOLUME 89 FL (80-99); MONOCYTES % (AUTO) 8.9 % (1.0-10.0); NEUTROPHILS % (AUTO) 60.8 % (45.0-75.0); PLATELET COUNT 282 K/UL (150-450); RED BLOOD COUNT 5.45 M/UL (4.70-6.10); RED CELL DISTRIBUTION WIDTH 11.9 % (11.6-14.8); WHITE BLOOD COUNT 5.2 K/UL (4.8-10.8)
[2020-02-18 07:20] LABS: ANION GAP 10 mmol/L (5-15); BLOOD UREA NITROGEN 12 mg/dL (7-18); CALCIUM 9.4 MG/DL (8.5-10.1); CARBON DIOXIDE 30 MMOL/L (21-32); CHLORIDE 99 MMOL/L (98-107); CREATININE 1.1 MG/DL (0.55-1.30); POTASSIUM 3.8 MMOL/L (3.5-5.1); SODIUM 139 MMOL/L (136-145)
[2020-02-18 07:24] LABS: ALANINE AMINOTRANSFERASE 94 U/L (12-78); ALBUMIN 4.6 G/DL (3.4-5.0); ALBUMIN/GLOBULIN RATIO 1.3 (1.0-2.7); ALKALINE PHOSPHATASE 74 U/L (46-116); ASPARTATE AMINO TRANSFERASE 33 U/L (15-37); BILIRUBIN,TOTAL 0.6 MG/DL (0.2-1.0)
[2020-02-18 07:59] VITALS: BP 139/82
--- NOTE | 2020-02-18 08:40 | NUR ---
ED Nurse Note: Patient taken to CT
--- NOTE | 2020-02-18 08:50 | NUR ---
ED Nurse Note: Patient returned from CT
--- NOTE | 2020-02-18 09:30 | Diagnostic Imaging Report ---
EXAM: CT CT Abdomen Pelvis w/Contrast INDICATION: Right-sided abdominal pain. COMPARISON: None TECHNIQUE: Axial images were obtained through the abdomen pelvis with intravenous contrast. Sagittal and coronal reformats are generated. All CT scans at this facility are performed using dose modulation techniques as appropriate to a performed exam including the following: automated exposure control with adjustment of the mA and/or kV according to patient size. RADIATION DOSE: CTDIvol: 15.6 mGy DLP: 898.6 mGy-cm Dose information generated by the CT scanner is available in PACS. FINDINGS: The lung bases are clear. There is diffuse fatty liver. The spleen is homogeneous. Gallbladder is without sludge or stone and there is no wall thickening. The pancreas is unremarkable. Adrenals are normal in morphology. The kidneys are normal in size, shape and axis. Small bowel loops are nondistended. The colon is also nondistended with average amount of stool. The appendix is normal. There is no free fluid or free air. No pathologic adenopathy demonstrated. Urinary bladder appears unremarkable. There is a small fatty umbilical hernia. IMPRESSION: FATTY LIVER. NO RENAL STONE OR HYDRONEPHROSIS. NORMAL APPENDIX. SMALL FATTY MEDICAL HERNIA.
[2020-02-18] MEDS ORDERED: OMEPRAZOLE20 M4 PO (10:07)
[2020-02-18 10:15] VITALS: BP 135/80
== END 2020-02-18 10:15 | disposition home or self-care (01) ==
LOC: EMR 06:17
DX: R10.11 Right upper quadrant pain (principal); J45.909 Unspecified asthma, uncomplicated; Z79.899 Other long term (current) drug therapy
CPT/HCPCS: 36415; 74177; 80053; 81003; 83690; 85025; 85610; 85730; 86850; 86900; 86901; 99284; Q9965

== ENCOUNTER 2020-02-22 13:44 | Inpatient (IN) | payer OTHER ==
[~2020-02-22] VITALS: Ht 167.6 cm; Wt 117.0 kg
[~2020-02-22 13:44] MED LIST changes: +OMEPRAZOLE20 M4 PO
--- NOTE | 2020-02-22 14:27 | Emergency Room Report ---
History of Present Illness General Chief Complaint: Palpitations Source: Patient Present Illness HPI Patient is a 35-year-old male past medical history of obesity and fatty liver who presents to the ER complaining of palpitations. [facility] was [facility] awaiting for his food to digest when he had sudden onset of palpitations. He denies any history of similar symptoms. He denies any fever or chills. He denies any chest pain, shortness of breath or dizziness. He denies any recent travel. He denies any family history of early cardiovascular disease. He denies any smoking, drinking or drug use. States that he did not try taking anything prior to arrival. Patient states that he feels anxious just thinking about what is occurring. 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 COVID-19 Screening: Negative COVID-19 COVID-19 Testing Source: nasal Patient History Reviewed Nursing Documentation: PMH: Agreed; PSxH: Agreed Nursing Documentation-PMH Past Medical History: No History, Except For Hx Asthma: Yes Review of Systems All Other Systems: negative except mentioned in HPI Physical Exam Vital Signs Date Time Temp Pulse Resp B/P (MAP) Pulse Ox O2 Delivery O2 Flow Rate FiO2 02/22/20 13:48 97.7 126 17 137/88 (104) 99 Room Air Sp02 EP Interpretation: reviewed, normal General Appearance: no apparent distress, alert, GCS 15, non-toxic Head: normocephalic, atraumatic Eyes: bilateral eye normal inspection, bilateral eye PERRL ENT: hearing grossly normal, normal pharynx, no angioedema, normal voice Neck: full range of motion, supple/symm/no masses Respiratory: chest non-tender, lungs clear, normal breath sounds, speaking full sentences Cardiovascular #1: tachycardia Cardiovascular #2: 2+ radial (R), 2+ radial (L) Gastrointestinal: normal bowel sounds, non tender, soft, non-distended, no guarding, no rebound, overweight Rectal: deferred Genitourinary: normal inspection, no CVA tenderness Musculoskeletal: back normal, normal range of motion, no calf tenderness, gait/station normal, no lower extremity edema, non-tender Neurologic: alert, motor strength/tone normal, oriented x3, sensory intact, responsive, speech normal Psychiatric: no suicidal/homicidal ideation Skin: no rash Lymphatic: no adenopathy Medical Decision Making Diagnostic Impression: Primary Impression: Palpitations Additional Impressions: Acute electrocardiogram changes Transaminitis ER Course 2:55 PM patient told the bedside nurse that he smoked weed plan earlier today which he has not done previously. Patient reevaluated at 1600. Patient is resting comfortably in his bed. He states that the palpitations have improved but he has persistent palpitations. He denies ever having chest pain or shortness of breath. His EKG does demonstrate T wave inversions in the inferior leads. Patient given aspirin as well as IV fluids. Patient's labs demonstrate no significant acute abnormalitie s. Specifically patient does not have any elevation in his troponin or D-dimer. Drug screen is negative. I explained to the patient that I would like him to be admitted for further treatment and evaluation. He states that he needs to call his . Laboratory Tests Test 02/22/20 14:30 White Blood Count 7.2 K/UL (4.8-10.8) Red Blood Count 5.61 M/UL (4.70-6.10) Hemoglobin 16.6 G/DL (14.2-18.0) Hematocrit 49.0 % (42.0-52.0) Mean Corpuscular Volume 87 FL (80-99) Mean Corpuscular Hemoglobin 29.7 PG (27.0-31.0) Mean Corpuscular Hemoglobin Concent 33.9 G/DL (32.0-36.0) Red Cell Distribution Width 11.4 % (11.6-14.8) L Platelet Count 307 K/UL (150-450) Mean Platelet Volume 8.5 FL (6.5-10.1) Neutrophils (%) (Auto) 64.2 % (45.0-75.0) Lymphocytes (%) (Auto) 25.2 % (20.0-45.0) Monocytes (%) (Auto) 7.5 % (1.0-10.0) Eosinophils (%) (Auto) 1.2 % (0.0-3.0) Basophils (%) (Auto) 1.8 % (0.0-2.0) D-Dimer < 0.19 mg/L FEU Sodium Level 136 MMOL/L (136-145) Potassium Level 3.7 MMOL/L (3.5-5.1) Chloride Level 101 MMOL/L (98-107) Carbon Dioxide Level 28 MMOL/L (21-32) Anion Gap 7 mmol/L (5-15) Blood Urea Nitrogen 10 mg/dL (7-18) Creatinine 1.2 MG/DL (0.55-1.30) Estimated Glomerular Filtration Rate > 60 mL/min (>60) Glucose Level 93 MG/DL (74-106) Calcium Level 9.6 MG/DL (8.5-10.1) Magnesium Level 1.9 MG/DL (1.8-2.4) Total Bilirubin 0.4 MG/DL (0.2-1.0) Aspartate Amino Transferase (AST) 41 U/L (15-37) H Alanine Aminotransferase (ALT) 113 U/L (12-78) H Alkaline Phosphatase 73 U/L (46-116) Troponin I 0.000 ng/mL (0.000-0.056) Total Protein 8.9 G/DL (6.4-8.2) H Albumin 4.7 G/DL (3.4-5.0) Globulin 4.2 g/dL Albumin/Globulin Ratio 1.1 (1.0-2.7) Thyroid Stimulating Hormone (TSH) 1.545 uiU/mL (0.358-3.740) Free Thyroxine 1.47 NG/DL (0.76-1.46) H Urine Opiates Screen Negative (NEGATIVE) Urine Barbiturates Screen Negative (NEGATIVE) Phencyclidine (PCP) Screen Negative (NEGATIVE) Urine Amphetamines Screen Negative (NEGATIVE) Urine Benzodiazepines Screen Negative (NEGATIVE) Urine Cocaine Screen Negative (NEGATIVE) Urine Marijuana (THC) Screen Negative (NEGATIVE) EKG Diagnostic Results Troponin ordered: Yes When was troponin ordered?: Feb 22, 2020 EKG Time: 13:59 EP Interpretation: Lita Tolliver MD Rate: tachycardiac Rhythm: other - Sinus tachycardia ST Segments: other - T wave inversions in 2 3 and aVF ASA given to the pt in ED: Yes Rhythm Strip Diag. Results Rhythm Strip Time: 14:40 EP Interpretation: yes - Lita Tolliver MD Rate: 125 bpm Rhythm: no PVC's, no ectopy, other - Sinus tachycardia Chest X-Ray Diagnostic Results Chest X-Ray Diagnostic Results : Chest X-Ray Ordered: Yes # of Views/Limited/Complete: 1 View Indication: Other - palpitations EP Interpretation: Yes Interpretation: no consolidation, no effusion, no pneumothorax, no acute cardiopulmonary disease Impression: No acute disease Electronically Signed by: Lita Tolliver MD Last Vital Signs Date Time Temp Pulse Resp B/P (MAP) Pulse Ox O2 Delivery O2 Flow Rate FiO2 02/22/20 13:48 97.7 126 17 137/88 (104) 99 Room Air Disposition: ADMITTED INPATIENT - Telemetry Condition: Critical Physician Consult: Dr. Horner at 1644 Additional Instructions: Please note that this report is being documented using [employer] technology. This can lead to erroneous entry secondary to incorrect interpretation by the dictating instrument. Lita Tolliver M.D. Feb 22, 2020 14:27
[2020-02-22] MEDS ORDERED: LORazepam Inj 2mg/ml 1ml IV ONE (14:30)
[2020-02-22] MEDS ORDERED: Aspirin Baby 81mg ORAL ONE (14:45)
[2020-02-22 14:46] LABS: BASOPHILS % (AUTO) 1.8 % (0.0-2.0); EOSINOPHILS % (AUTO) 1.2 % (0.0-3.0); HEMOGLOBIN 16.6 G/DL (14.2-18.0); LYMPHOCYTES % (AUTO) 25.2 % (20.0-45.0); MEAN CORPUSCULAR VOLUME 87 FL (80-99); MONOCYTES % (AUTO) 7.5 % (1.0-10.0); NEUTROPHILS % (AUTO) 64.2 % (45.0-75.0); PLATELET COUNT 307 K/UL (150-450); RED BLOOD COUNT 5.61 M/UL (4.70-6.10); RED CELL DISTRIBUTION WIDTH 11.4 % (11.6-14.8); WHITE BLOOD COUNT 7.2 K/UL (4.8-10.8)
[2020-02-22 14:55] LABS: ANION GAP 7 mmol/L (5-15); BLOOD UREA NITROGEN 10 mg/dL (7-18); CALCIUM 9.6 MG/DL (8.5-10.1); CARBON DIOXIDE 28 MMOL/L (21-32); CHLORIDE 101 MMOL/L (98-107); CREATININE 1.2 MG/DL (0.55-1.30); POTASSIUM 3.7 MMOL/L (3.5-5.1); SODIUM 136 MMOL/L (136-145)
[2020-02-22 14:58] VITALS: BP 137/88
[2020-02-22 15:11] LABS: ALANINE AMINOTRANSFERASE 113 U/L (12-78); ALBUMIN 4.7 G/DL (3.4-5.0); ALBUMIN/GLOBULIN RATIO 1.1 (1.0-2.7); ALKALINE PHOSPHATASE 73 U/L (46-116); ASPARTATE AMINO TRANSFERASE 41 U/L (15-37); BILIRUBIN,TOTAL 0.4 MG/DL (0.2-1.0)
[2020-02-22 16:27] VITALS: BP 135/81
--- NOTE | 2020-02-22 17:50 | Diagnostic Imaging Report ---
Indication: Chest pain Technique: One view of the chest Comparison: 10/14/2019 Findings: Lungs and pleural spaces are clear. Heart size is normal. Impression: No acute process
--- NOTE | 2020-02-22 22:00 | Consultation ---
DATE OF CONSULTATION: 02/22/2020 GASTROLOGY CONSULTATION CHIEF COMPLAINT: I was asked to see this patient for evaluation of abnormal liver tests. HISTORY OF PRESENT ILLNESS: The patient is a 34-year-old man who comes into the hospital due to palpitations and tachycardia. He also has been found to have abnormal liver tests. He has had some imaging studies recently including abdominal ultrasound and CT scan of the abdomen and pelvis, both of which showed fatty liver. The patient has had no previous history of hepatitis. He does not drink alcohol. The patient denies any abdominal pain, nausea, or vomiting. He does have a history of obesity. PAST MEDICAL HISTORY: History of asthma. FAMILY HISTORY: Noncontributory and negative for liver disease. SOCIAL HISTORY: The patient does not drink alcohol. REVIEW OF SYSTEMS: Otherwise negative. PHYSICAL EXAMINATION: GENERAL: An obese man seen in his room. HEENT: Normocephalic and atraumatic. Sclerae anicteric. Oropharynx is clear. NECK: Supple. CHEST: Clear to auscultation. CARDIAC: Regular rate. ABDOMEN: Soft, obese with good bowel sounds. EXTREMITIES: No edema. LABORATORY DATA: Noted. ASSESSMENT: This patient presents with abnormal liver tests with fatty liver seen both on CT scan as well as abdominal ultrasound. The patient is advised that weight loss in noted. I will check hepatitis B and C serologies as well as other usual causative factors for his liver test abnormalities including autoimmune markers, FLAVIO, and iron panel. However, given the imaging results and the patient's weigh, fatty liver could be the obvious etiology that would be considered as the cause of his abnormal liver tests and treatment would be weight loss. RECOMMENDATIONS: Per above discussion and per orders written in the chart. Thank you for asking me to participate in the care of this patient. Anna Mattson M.D. DR: JIMENEZ JOB#: [id number] CC: JIE
[2020-02-23] VITALS: BP 115/71
[2020-02-23 04:00] VITALS: BP 123/89
[2020-02-23 07:40] LABS: ALANINE AMINOTRANSFERASE 116 U/L (12-78); ALBUMIN/GLOBULIN RATIO 1.1 (1.0-2.7); ALKALINE PHOSPHATASE 77 U/L (46-116); ANION GAP 11 mmol/L (5-15); ASPARTATE AMINO TRANSFERASE 41 U/L (15-37); BILIRUBIN,TOTAL 0.6 MG/DL (0.2-1.0); BLOOD UREA NITROGEN 7 mg/dL (7-18); CALCIUM 9.4 MG/DL (8.5-10.1); CARBON DIOXIDE 26 MMOL/L (21-32); CHLORIDE 101 MMOL/L (98-107); CREATINE KINASE 127 U/L (26-308); POTASSIUM 3.7 MMOL/L (3.5-5.1); SODIUM 138 MMOL/L (136-145)
[2020-02-23 07:43] LABS: BASOPHILS % (AUTO) 1.6 % (0.0-2.0); HEMATOCRIT 51.8 % (42.0-52.0); HEMOGLOBIN 17.1 G/DL (14.2-18.0); LYMPHOCYTES % (AUTO) 33.1 % (20.0-45.0); MEAN CORPUSCULAR VOLUME 89 FL (80-99); MONOCYTES % (AUTO) 8.4 % (1.0-10.0); NEUTROPHILS % (AUTO) 54.9 % (45.0-75.0); PLATELET COUNT 324 K/UL (150-450); RED BLOOD COUNT 5.83 M/UL (4.70-6.10); RED CELL DISTRIBUTION WIDTH 11.7 % (11.6-14.8); WHITE BLOOD COUNT 4.9 K/UL (4.8-10.8)
[2020-02-23 07:55] LABS: % IRON SATURATION 32 % (15-50); IRON 102 ug/dL (50-175); TOTAL IRON BINDING CAPACITY 315 ug/dL (250-450)
[2020-02-23 08:00] VITALS: BP 137/90
--- NOTE | 2020-02-23 11:09 | Cardiac Electrophysiology PN ---
Subjective Subjective Seen with RN [phone]. Objective Last 24 Hour Vital Signs Date Time Temp Pulse Resp B/P (MAP) Pulse Ox O2 Delivery O2 Flow Rate FiO2 02/23/20 08:03 Room Air 02/23/20 08:00 98.1 105 18 137/90 (106) 98 02/23/20 08:00 99 02/23/20 04:00 97.9 69 22 123/89 (100) 98 02/23/20 04:00 69 02/23/20 00:00 97.7 85 18 115/71 (86) 98 02/23/20 00:00 85 02/22/20 21:00 Room Air 02/22/20 20:00 95 02/22/20 17:54 Room Air 02/22/20 17:27 97.7 108 17 137/88 99 Room Air 02/22/20 16:27 97.7 108 17 135/81 99 Room Air 02/22/20 16:27 108 17 137/88 99 02/22/20 14:58 97.7 113 17 137/88 99 Room Air 02/22/20 14:50 126 17 137/88 99 02/22/20 13:48 97.7 126 17 137/88 (104) 99 Room Air Intake and Output0 02/22/20 02/23/20 19:00 07:00 Intake Total 200 ml 500 ml Balance 200 ml 500 ml Intake Oral 200 ml 500 ml # Voids 1 3 Laboratory Tests Test 02/22/20 14:30 02/23/20 05:33 White Blood Count 7.2 K/UL (4.8-10.8) 4.9 K/UL (4.8-10.8) Red Blood Count 5.61 M/UL (4.70-6.10) 5.83 M/UL (4.70-6.10) Hemoglobin 16.6 G/DL (14.2-18.0) 17.1 G/DL (14.2-18.0) Hematocrit 49.0 % (42.0-52.0) 51.8 % (42.0-52.0) Mean Corpuscular Volume 87 FL (80-99) 89 FL (80-99) Mean Corpuscular Hemoglobin 29.7 PG (27.0-31.0) 29.4 PG (27.0-31.0) Mean Corpuscular Hemoglobin Concent 33.9 G/DL (32.0-36.0) 33.0 G/DL (32.0-36.0) Red Cell Distribution Width 11.4 % (11.6-14.8) L 11.7 % (11.6-14.8) Platelet Count 307 K/UL (150-450) 324 K/UL (150-450) Mean Platelet Volume 8.5 FL (6.5-10.1) 8.3 FL (6.5-10.1) Neutrophils (%) (Auto) 64.2 % (45.0-75.0) 54.9 % (45.0-75.0) Lymphocytes (%) (Auto) 25.2 % (20.0-45.0) 33.1 % (20.0-45.0) Monocytes (%) (Auto) 7.5 % (1.0-10.0) 8.4 % (1.0-10.0) Eosinophils (%) (Auto) 1.2 % (0.0-3.0) 2.0 % (0.0-3.0) Basophils (%) (Auto) 1.8 % (0.0-2.0) 1.6 % (0.0-2.0) D-Dimer < 0.19 mg/L FEU Sodium Level 136 MMOL/L (136-145) 138 MMOL/L (136-145) Potassium Level 3.7 MMOL/L (3.5-5.1) 3.7 MMOL/L (3.5-5.1) Chloride Level 101 MMOL/L (98-107) 101 MMOL/L (98-107) Carbon Dioxide Level 28 MMOL/L (21-32) 26 MMOL/L (21-32) Anion Gap 7 mmol/L (5-15) 11 mmol/L (5-15) Blood Urea Nitrogen 10 mg/dL (7-18) 7 mg/dL (7-18) Creatinine 1.2 MG/DL (0.55-1.30) 1.0 MG/DL (0.55-1.30) Estimat Glomerular Filtration Rate > 60 mL/min (>60) > 60 mL/min (>60) Glucose Level 93 MG/DL (74-106) 80 MG/DL (74-106) Calcium Level 9.6 MG/DL (8.5-10.1) 9.4 MG/DL (8.5-10.1) Magnesium Level 1.9 MG/DL (1.8-2.4) Total Bilirubin 0.4 MG/DL (0.2-1.0) 0.6 MG/DL (0.2-1.0) Aspartate Amino Transf (AST/SGOT) 41 U/L (15-37) H 41 U/L (15-37) H Alanine Aminotransferase (ALT/SGPT) 113 U/L (12-78) H 116 U/L (12-78) H Alkaline Phosphatase 73 U/L (46-116) 77 U/L (46-116) Troponin I 0.000 ng/mL (0.000-0.056) Total Protein 8.9 G/DL (6.4-8.2) H 9.5 G/DL (6.4-8.2) H Albumin 4.7 G/DL (3.4-5.0) 5.0 G/DL (3.4-5.0) Globulin 4.2 g/dL 4.5 g/dL Albumin/Globulin Ratio 1.1 (1.0-2.7) 1.1 (1.0-2.7) Thyroid Stimulating Hormone (TSH) 1.545 uiU/mL (0.358-3.740) Free Thyroxine 1.47 NG/DL (0.76-1.46) H Urine Opiates Screen Negative (NEGATIVE) Urine Barbiturates Screen Negative (NEGATIVE) Phencyclidine (PCP) Screen Negative (NEGATIVE) Urine Amphetamines Screen Negative (NEGATIVE) Urine Benzodiazepines Screen Negative (NEGATIVE) Urine Cocaine Screen Negative (NEGATIVE) Urine Marijuana (THC) Screen Negative (NEGATIVE) Iron Level 102 ug/dL (50-175) Total Iron Binding Capacity 315 ug/dL (250-450) Percent Iron Saturation 32 % (15-50) Unsaturated Iron Binding 213 ug/dL (112-346) Total Creatine Kinase 127 U/L (26-308) Anti-Nuclear Antibody Screen Pending Hepatitis A IgM Antibody Pending Hepatitis B Surface Antigen Pending Hepatitis B Core IgM Antibody Pending Hepatitis C Antibody Pending Microbiology Date/Time Source Procedure Growth Status 02/22/20 17:10 Nasopharynx SARS-CoV-2 RdRp Gene Assay - Final Complete Steve Dean MD Feb 23, 2020 11:09
--- NOTE | 2020-02-23 11:45 | Consultation ---
DATE OF CONSULTATION: 02/23/2020 PULMONARY CONSULTATION HISTORY OF PRESENT ILLNESS: This is a 34-year-old male who came to the hospital with palpitations, tachycardia. He has also been found to have abnormal LFTs. I have been asked to consult with respect to his pulmonary status. At this time, he states he is not short of breath and denies any cough. He reports history of obesity and reports he has had a fatty liver in the past as well. The patient reports high level of anxiety. He underwent a complete workup in the ER. He was found to be saturating well on room air. A chest x-ray was also obtained, which showed clear lung doyle bilaterally. PAST MEDICAL HISTORY: Unremarkable except for history of asthma HOME MEDICATIONS: The patient is currently on no medications at home and here in the hospital received aspirin, Ativan. REVIEW OF SYSTEMS: The patient denies any headaches, hematemesis, melena, or hematochezia. PHYSICAL EXAMINATION: GENERAL: Reveals a 34-year-old male. VITAL SIGNS: Blood pressure 130/70, heart rate 104, respirations 18, O2 saturation 98% on room air. HEENT: Unremarkable. CHEST: Clear breath sounds bilaterally. ABDOMEN: Soft. EXTREMITIES: There is no edema. NEUROLOGIC: Nonfocal. LABORATORY DATA: Lab testing shows normal CBC and BMP with mildly elevated AST and ALT. Free T4 is 1.47. X-ray chest was obtained, which shows clear lung doyle bilaterally. IMPRESSION: 1. Asthma, stable. 2. History of transaminitis/fatty liver. 3. Obesity. DISCUSSION: Currently respiratory status is stable. We will follow as needed. Thank you for the consultation. Marcelo Hernandes M.D. DR: Shante JOB#: [id number] CC:
[2020-02-23 12:00] VITALS: BP 132/84
[2020-02-23 16:00] VITALS: BP 135/81
--- NOTE | 2020-02-23 17:45 | Consultation ---
DATE OF CONSULTATION: 02/23/2020 CARDIOLOGY CONSULTATION CONSULTING PHYSICIAN: Steve Dean M.D. REFERRING PHYSICIAN: Masoud Wilburn M.D. REASON FOR CONSULTATION: Tachycardia. HISTORY OF PRESENT ILLNESS: The patient is a 34-year-old gentleman with history of obesity, who presented to the emergency room complaining of palpitation. The patient at [facility] and was lying down when he suddenly had palpitation. He denies any similar symptoms in the past. Denies any chest pain or shortness of breath. No nausea, vomiting, or diaphoresis. Denies any drug use or drinking alcohol. The patient came to the emergency room. Heart rate was 126, blood pressure 137/88. A cardiology consultation was obtained for further evaluation and management. REVIEW OF SYSTEMS: Negative other than what was mentioned in history of present illness. PAST MEDICAL HISTORY: As mentioned above. FAMILY HISTORY: Noncontributory. SOCIAL HISTORY: Denies smoking or drinking alcohol. PHYSICAL EXAMINATION: VITAL SIGNS: Blood pressure of 137/90, pulse 100, respirations 18, temperature 98. HEAD AND NECK: No JVD. LUNGS: Clear. CARDIOVASCULAR: Regular S1 and S2 with no gallop or murmur. ABDOMEN: Soft. EXTREMITIES: No pitting edema. LABORATORY AND DIAGNOSTIC DATA: Labs showed white count of 4.9, hemoglobin 17, hematocrit 51, and platelet count 324. Sodium 138, potassium 3.7, BUN of 7, creatinine of 1. First troponin is negative. His ALT and AST are mildly elevated. Urine toxicology screen was negative. ASSESSMENT AND PLAN: 1. Palpitation, etiology is not clear at this time. First troponin is negative. We will repeat EKG and echocardiogram for further evaluation. Currently does not have any chest pain or shortness of breath. 2. Abnormal liver function tests. Had abdominal ultrasound and CT of the abdomen and pelvis, which showed fatty liver. Further evaluation by Dr. Mattson. Hepatitis B and C serology is pending. Thank you very much for allowing me to participate in the care of this patient. Please do not hesitate to contact me for any questions regarding my evaluation. Steve Dean M.D. DR: Kristel JOB#: [id number] CC:
--- NOTE | 2020-02-23 18:11 | Cardiology Report ---
APPROVED REPORT EXAM: Two-dimensional and M-mode echocardiogram with Doppler and color Doppler. INDICATION Tachycardia M-Mode DIMENSIONS IVSd0.9 (0.7-1.1cm)Left Atrium (MM)3.8 (1.6-4.0cm) LVDd5.6 (3.5-5.6cm)Aortic Root3.1 (2.0-3.7cm) PWd0.9 (0.7-1.1cm)Aortic Cusp Exc.2.0 (1.5-2.0cm) IVSs1.4 cmEPSS0.4 (>1.0cm) LVDs4.0 (2.5-4.0cm) PWs1.4 cm <Conclusion> Normal left ventricular chamber size, systolic function and wall motion to extent visualized. Left ventricular ejection fraction estimated to be 55-60 %. No left ventricular hypertrophy. Anterior Echo-free space, may be due to pericardial fat or effusion. All other cardiac chamber sizes are within normal limits. Focal aortic valve sclerosis with adequate cusp excursion. Thickened mitral valve leaflets with normal excursion. Mitral annulus and aortic root calcification. Pulmonic valve not well visualized. Normal tricuspid valve structure. IVC unobtainable. A color flow and spectral Doppler study was performed and revealed: No aortic regurgitation. Mitral diastolic velocities & Tissue Doppler Imaging suggest mild left ventricular diastolic dysfunction. No mitral regurgitation. Trace tricuspid regurgitation. Tricuspid systolic velocities suggests peak right ventricular systolic pressure of 7 mmHg. No pulmonic regurgitation present.
--- NOTE | 2020-02-23 18:23 | Cardiology Report ---
APPROVED REPORT EKG Measurement Heart [id number] <Conclusion> Sinus tachycardia T wave abnormality, consider inferior ischemia Abnormal ECG
[2020-02-23 20:00] VITALS: BP 138/96
--- NOTE | 2020-02-23 21:14 | History and Physical Report ---
DATE OF ADMISSION: 02/22/2020 HISTORY OF PRESENT ILLNESS: The patient comes in because of palpitation of one day history of asthma. The patient denies nausea, vomiting, or diarrhea. The patient was admitted for abnormal EKG and elevated LFT as well. The patient denies shortness of breath. Denies nausea, vomiting, or diarrhea. No fever or chills. No shortness of breath. No chest pain. Denies abdominal pain. Denies night sweats. Denies any change in the weight. PAST MEDICAL HISTORY: Significant for asthma, degenerative joint disease, and GERD. PAST SURGICAL HISTORY: Right knee surgery. FAMILY HISTORY: Noncontributory. ALLERGIES: No known allergies. SOCIAL HISTORY: Denies history of smoking. Denies history of alcohol or illicit drugs. MEDICATIONS: Albuterol inhaler 2 puffs q.4h. p.r.n. and omeprazole 20 mg daily. REVIEW OF SYSTEMS: HEENT: Denies headaches. RESPIRATORY: Denies shortness of breath. Denies cough. CARDIOVASCULAR: Denies chest pain. Denies nausea, vomiting, or diarrhea. EXTREMITIES: Does have mild knee pain, which is chronic. Denies change in speech pattern. CARDIOVASCULAR: Does have a palpation for one day. Denies chest pain. PHYSICAL EXAMINATION: VITAL SIGNS: Temperature 97.7, pulse is 85, blood pressure 115/71. HEENT: PERRLA. NECK: Supple. No lymphadenopathy. CHEST: Clear to auscultation. CARDIOVASCULAR: Regular rate and rhythm. No murmurs or extra sounds. GASTROINTESTINAL: Soft, nontender, and nondistended. No organomegaly. EXTREMITIES: No edema. Moves all four extremities. NEUROLOGIC: Sensory intact to light touch. Reflexes in both sides. Moves all four extremities. LABORATORY DATA: WBC of 7.2, hemoglobin of 16.6, and platelets 307. Sodium 138, potassium 3.7, BUN of 7, creatinine of 1. ASSESSMENT AND PLAN: Palpitation, tachycardia, elevated LFTs, and asthma. I have asked Dr. Hernandes, Dr. Dean, Dr. Anna Mattson to see the patient to help with the above-mentioned abnormalities, abnormal symptoms, abnormal findings, abnormal laboratories and workup of elevated LFTs per Dr. Mattson. Ali Idania Wilburn DR: Nichole JOB#: [id number] CC:
--- NOTE | 2020-02-23 21:42 | General Progress Note ---
Subjective Allergies: Coded Allergies: No Known Allergies (Unverified , 09/23/19) Subjective feels OK tolerating PO mild R sided abd discomfort Objective Last 24 Hour Vital Signs Date Time Temp Pulse Resp B/P (MAP) Pulse Ox O2 Delivery O2 Flow Rate FiO2 02/23/20 20:00 100 02/23/20 20:00 97.9 116 20 138/96 (110) 96 02/23/20 16:00 98 02/23/20 16:00 97.8 94 19 135/81 (99) 98 02/23/20 12:00 97.9 99 18 132/84 (100) 98 02/23/20 12:00 120 02/23/20 08:03 Room Air 02/23/20 08:00 98.1 105 18 137/90 (106) 98 02/23/20 08:00 99 02/23/20 04:00 97.9 69 22 123/89 (100) 98 02/23/20 04:00 69 02/23/20 00:00 97.7 85 18 115/71 (86) 98 02/23/20 00:00 85 Intake and Output 02/22/20 02/23/20 19:00 07:00 Intake Total 200 ml 500 ml Balance 200 ml 500 ml Intake Oral 200 ml 500 ml # Voids 1 3 Laboratory Tests 02/23/20 05:33: White Blood Count 4.9, Red Blood Count 5.83, Hemoglobin 17.1, Hematocrit 51.8, Mean Corpuscular Volume 89, Mean Corpuscular Hemoglobin 29.4, Mean Corpuscular Hemoglobin Concent 33.0, Red Cell Distribution Width 11.7, Platelet Count 324, Mean Platelet Volume 8.3, Neutrophils (%) (Auto) 54.9, Lymphocytes (%) (Auto) 33.1, Monocytes (%) (Auto) 8.4, Eosinophils (%) (Auto) 2.0, Basophils (%) (Auto) 1.6, Sodium Level 138, Potassium Level 3.7, Chloride Level 101, Carbon Dioxide Level 26, Anion Gap 11, Blood Urea Nitrogen 7, Creatinine 1.0, Estimat Glomerular Filtration Rate > 60, Glucose Level 80, Calcium Level 9.4, Iron Level 102, Total Iron Binding Capacity 315, Percent Iron Saturation 32, Unsaturated Iron Binding 213, Total Bilirubin 0.6, Aspartate Amino Transf (AST/SGOT) 41H, Alanine Aminotransferase (ALT/SGPT) 116H, Alkaline Phosphatase 77, Total Creatine Kinase 127, Total Protein 9.5H, Albumin 5.0, Globulin 4.5, Albumin/Globulin Ratio 1.1, Anti-Nuclear Antibody Screen [Pending], Hepatitis A IgM Antibody [Pending], Hepatitis B Surface Antigen [Pending], Hepatitis B Core IgM Antibody [Pending], Hepatitis C Antibody [Pending] Height (Feet): 5 Height (Inches): 6.00 Weight (Pounds): 256 Objective NCAT supple CTA RRR abd obese NT ND no edema non focal Assessment/Plan Assessment/Plan: Assessment - Obesity - abnormal LFT - fatty liver Recommendations - follow LFT - follow hepatitis serologies Anna Mattson MD Feb 23, 2020 21:42
[2020-02-23] MEDS ORDERED: Albuterol ud Inhalation HHN PRN (21:45)
[2020-02-24] VITALS: BP 114/64
[2020-02-24 04:00] VITALS: BP 146/95
[2020-02-24 08:00] VITALS: BP 126/88
--- NOTE | 2020-02-24 09:59 | Pulmonology Progress Note ---
Subjective Interval Events: Nopne new Constitutional: Reports: no symptoms HEENT: Repors: no symptoms Respiratory: Reports: no symptoms Cardiovascular: Reports: no symptoms Allergies: Coded Allergies: No Known Allergies (Unverified , 09/23/19) Objective Last 24 Hour Vital Signs Date Time Temp Pulse Resp B/P (MAP) Pulse Ox O2 Delivery O2 Flow Rate FiO2 02/24/20 08:13 Room Air 02/24/20 04:00 97.9 104 21 146/95 (112) 100 02/24/20 04:00 83 02/24/20 00:00 84 02/24/20 00:00 98.0 90 20 114/64 (81) 95 02/23/20 21:00 Room Air 02/23/20 20:00 100 02/23/20 20:00 97.9 116 20 138/96 (110) 96 02/23/20 16:00 98 02/23/20 16:00 97.8 94 19 135/81 (99) 98 02/23/20 12:00 97.9 99 18 132/84 (100) 98 02/23/20 12:00 120 Intake and Output 02/23/20 02/24/20 19:00 07:00 Intake Total 2400 ml 4000 ml Balance 2400 ml 4000 ml Intake Oral 2400 ml 4000 ml # Voids 4 6 General Appearance: no acute distress HEENT: normocephalic Respiratory: chest wall non-tender, lungs clear Cardiovascular: normal peripheral pulses Abdomen: normal bowel sounds Microbiology Date/Time Source Procedure Growth Status 02/22/20 17:10 Nasopharynx SARS-CoV-2 RdRp Gene Assay - Final Complete Laboratory Tests 02/24/20 05:38: Troponin I 0.000, Pro-B-Type Natriuretic Peptide < 5, Thyroid Stimulating Hormone (TSH) 1.808, Free Thyroxine 1.42 Current Medications Medications (Trade) Dose Ordered Sig/Alondra Route PRN Reason Start Time Stop Time Status Last Admin Dose Admin Acetaminophen (Tylenol) 650 mg Q4H PRN ORAL Mild Pain (Pain Scale 1-3) 02/22/20 18:30 03/23/20 18:29 Albuterol Sulfate (Proventil) 2.5 mg Q4H PRN HHN Shortness of Breath 02/23/20 21:45 02/28/20 21:44 Assessment/Plan Assessment/Plan IMPRESSION: 1. Asthma, stable. 2. History of transaminitis/fatty liver. 3. Obesity. DISCUSSION: Currently respiratory status is stable. I will follow as needed. Heart rate mostly in 80's and 90's OK to dc. Idania Hull Omar Syed MD Feb 24, 2020 09:59
[2020-02-24 12:00] VITALS: BP 121/82
--- NOTE | 2020-02-24 12:14 | Cardiac Electrophysiology PN ---
Assessment/Plan Assessment/Plan 1. Palpitation of sudden onset and termination since 2014. Etiology is not clear at this time but likely SVT. Ruled out for GA. EF 55%. Likely need ZioPatch as out patient Currently does not have any chest pain or shortness of breath. 2. Abnormal liver function tests. Had abdominal ultrasound and CT of the abdomen and pelvis, which showed fatty liver. Further evaluation by Dr. Mattson. Hepatitis B and C serology is pending. DW RN Subjective Subjective No SVT overnight Objective Last 24 Hour Vital Signs Date Time Temp Pulse Resp B/P (MAP) Pulse Ox O2 Delivery O2 Flow Rate FiO2 02/24/20 08:13 Room Air 02/24/20 08:00 97.9 102 20 126/88 (101) 100 02/24/20 08:00 99 02/24/20 04:00 97.9 104 21 146/95 (112) 100 02/24/20 04:00 83 02/24/20 00:00 84 02/24/20 00:00 98.0 90 20 114/64 (81) 95 02/23/20 21:00 Room Air 02/23/20 20:00 100 02/23/20 20:00 97.9 116 20 138/96 (110) 96 02/23/20 16:00 98 02/23/20 16:00 97.8 94 19 135/81 (99) 98 Intake and Output 02/23/20 02/24/20 19:00 07:00 Intake Total 2400 ml 4000 ml Balance 2400 ml 4000 ml Intake Oral 2400 ml 4000 ml # Voids 4 6 Laboratory Tests Test 02/24/20 05:38 Troponin I 0.000 ng/mL (0.000-0.056) Pro-B-Type Natriuretic Peptide < 5 pg/mL (0-125) Thyroid Stimulating Hormone (TSH) 1.808 uiU/mL (0.358-3.740) Free Thyroxine 1.42 NG/DL (0.76-1.46) Microbiology Date/Time Source Procedure Growth Status 02/22/20 17:10 Nasopharynx SARS-CoV-2 RdRp Gene Assay - Final Complete Objective HEAD AND NECK: No JVD. LUNGS: Clear. CARDIOVASCULAR: Regular S1 and S2 with no gallop or murmur. ABDOMEN: Soft. EXTREMITIES: No pitting edema. Steve Dean MD Feb 24, 2020 12:14
--- NOTE | 2020-02-24 14:23 | Cardiology Report ---
APPROVED REPORT EKG Measurement Heart [id number] <Conclusion> Normal sinus rhythm Normal ECG
--- NOTE | 2020-02-24 21:42 | General Progress Note ---
Subjective Allergies: Coded Allergies: No Known Allergies (Unverified , 09/23/19) Subjective seen in am feels OK tolerating PO better advised needs to loose weight advised needs to f/u with GI as outpatient Objective Last 24 Hour Vital Signs Date Time Temp Pulse Resp B/P (MAP) Pulse Ox O2 Delivery O2 Flow Rate FiO2 02/24/20 12:00 94 02/24/20 12:00 98.1 107 20 121/82 (95) 96 02/24/20 08:13 Room Air 02/24/20 08:00 97.9 102 20 126/88 (101) 100 02/24/20 08:00 99 02/24/20 04:00 97.9 104 21 146/95 (112) 100 02/24/20 04:00 83 02/24/20 00:00 84 02/24/20 00:00 98.0 90 20 114/64 (81) 95 Intake and Output 02/23/20 02/24/20 19:00 07:00 Intake Total 2400 ml 4000 ml Balance 2400 ml 4000 ml Intake Oral 2400 ml 4000 ml # Voids 4 6 Laboratory Tests 02/24/20 05:38: Troponin I 0.000, Pro-B-Type Natriuretic Peptide < 5, Thyroid Stimulating Hormone (TSH) 1.808, Free Thyroxine 1.42 Height (Feet): 5 Height (Inches): 6.00 Weight (Pounds): 256 Objective NCAT supple CTA RRR abd obese NT ND no edema non focal Assessment/Plan Assessment/Plan: Assessment - Obesity - abnormal LFT - fatty liver Recommendations - follow LFT - follow hepatitis serologies Anna Mattson MD Feb 24, 2020 21:42
--- NOTE | 2020-02-26 08:53 | Discharge Summary ---
Discharge Summary Discharge Summary _ DATE OF ADMISSION: 02/22/2020 DATE OF DISCHARGE: 02/24/2020 DISCHARGED BY: Dr. Wilburn REASON FOR ADMISSION: 35 years old male with past medical history of fatty liver, obesity, presented to emergency department complaining of palpitations. Patient apparently had onset of palpitations after he had the salad and was lying down. He denied any prior similar symptoms. No fever or chills. No chest pain , shortness of breath or dizziness. No recent traveling. Upon evaluation vital signs revealed tachycardia with heart rate 126 , otherwise no fever, pulse extremity was stable on room air. Rapid COVID-19 was negative. Laboratory work-up revealed no leukocytosis , stable hemoglobin and hematocrit. Chemistry revealed stable electrolytes and renal parameters. AST 41, ALT 113. Troponin negative. EKG revealed sinus rhythm with T wave inversion in leads 2 , 3 and aVF. TSH within normal limits. Urine toxicology screen was negative. Chest x-ray revealed no acute cardiopulmonary pathology. In emergency department patient received Ativan , aspirin, bolus of IV fluid . Patient subsequently admitted for further management to telemetry floor CONSULTANTS: sql server consultant Dr. Green pulmonary Dr. Hernandes GI specialist Dr. Mattson [facility] COURSE: Patient admitted to monitored floor. Echocardiogram revealed preserved ejection fraction 55 to 60%. No evidence of left ventricular hypertrophy. No evidence of wall motion abnormality. Troponin was negative. Per sql server consultant palpitations were of a sudden onset , and etiology was not clear , but likely SVT. Patient was ruled out for acute myocardial infarction. Security Analyst recommended Ziopatch as outpatient. No chest pain, no shortness of breath . Pulse oximetry remained stable on room air. No evidence of asthma exacerbation. LFT were monitored. Hepatitis panel was negative. FLAVIO screen was negative Patient clinically stabilized and was ready for discharge home FINAL DIAGNOSES: Palpitations, likely SVT Abnormal LFT Asthma Fatty liver Obesity DISCHARGE MEDICATIONS: See Medication Reconciliation list. DISCHARGE INSTRUCTIONS: Patient was discharged home . Follow-up with a primary care provider in 1 week. Recommended Ziopatch as outpatient. I have been assigned to dictate discharge summary for this account. I was not involved in the patient's management. Laly Ni NP Feb 26, 2020 08:53
== END 2020-02-24 15:13 | disposition home or self-care (01) | DRG 309 ==
LOC: EMR 14:34 → 2E 16:37 → EDBEDREQ 17:07
DX: I47.1 Supraventricular tachycardia (principal); Z68.41 Body mass index [BMI] 40.0-44.9, adult; E66.9 Obesity, unspecified; K76.0 Fatty (change of) liver, not elsewhere classified; J45.909 Unspecified asthma, uncomplicated; R94.5 Abnormal results of liver function studies
CPT/HCPCS: 36415; 71045; 80053; 80307; 82550; 83540; 83550; 83735; 83880; 84439; 84443; 84484; 85025; 85379; 86039; 86705; 86709; 86803; 87340; 93005; 93306; 96361; 96374; 99285; J7030; U0002